=== PATIENT | male | born 1945 | race African-American/Black ===

== ENCOUNTER 2017-06-25 18:45 | Inpatient (IN) ==
[2017-06-25] MEDS ORDERED: cefTRIAXone 1,000 MG in SODIUM CHLORIDE 0.9% 100 ML IV STA (19:24)
[2017-06-25] MEDS ORDERED: SODIUM CHLORIDE 0.9% 500 ML IV STA (19:24)
[2017-06-25] MEDS ORDERED: methylPREDNISolone SOD SUC 125 MG/2 ML VIAL IV STA (19:24)
[2017-06-25] MEDS ORDERED: ONDANSETRON 4 MG/2 ML VIAL IV STA (19:24)
[2017-06-25] MEDS ORDERED: ALBUTEROL 2.5 MG/3 ML NEB RESP TX SCH (19:30)
[2017-06-25 19:56] LABS: ABG HCO3 26.9 MMOL/L (20-26); ABG Oxygen Saturation 86.7 % (95-100); ABG PCO2 33.9 MM HG (35-48); ABG PH 7.493 (7.35-7.45); ABG PO2 52.3 MM HG (80-95); ABG TCO2 23.4 MMOL/L (23-27)
[2017-06-25 20:26] LABS: Basophils % 0.2 % (0.0-0.8); Eosinophils % 0.2 % (0.00-10.9); Hematocrit 33.8 VOL% (42.0-52.0); Hemoglobin 10.2 GM/DL (14.0-18.0); Immature Granulocytes % 0.7 %; Immature Granulocytes Absolute 0.11 #; Lymphocytes # 2.5 10*3/uL (1.4-4.0); Lymphocytes % 15.7 % (21.2-54.2); Mean Corpuscular HGB Conc 30.2 GM/DL (32-36); Mean Corpuscular Hemoglobin 25 PG (27-34); Mean Corpuscular Volume 84.1 FL (87-102); Mean Platelet Volume 11.6 FL (9.6-12.0); Monocytes # 1.9 10*3/uL (0.11-0.8); Monocytes % 11.9 % (1.7-12.7); Neutrophils # 11.6 10*3/uL (1.4-7.4); Neutrophils % 71.3 % (38.7-73.9); Platelet Count 521 T/CUMM (130-400); Red Blood Count 4.02 MC/CUMM (3.8-5.5); Red Cell Distribution Width 17.5 % (9.3-17.3); White Blood Count 16.2 T/CUMM (4-12)
[2017-06-25 20:38] LABS: PT Patient Result 10.7 SECS
[2017-06-25] MEDS ORDERED: ONDANSETRON 4 MG/2 ML VIAL ONE (20:48)
[2017-06-25] MEDS ORDERED: cefTRIAXone 1,000 MG VIAL ONE (20:48)
[2017-06-25] MEDS ORDERED: methylPREDNISolone SOD SUC 125 MG/2 ML VIAL ONE (20:48)
[2017-06-25 20:52] LABS: Lactic Acid 1.5 MMOL/L (0.4-2.0)
[2017-06-25 20:55] LABS: Alanine Aminotransferase 158 U/L (16-61); Albumin 2.6 G/DL (3.4-5.0); Alkaline Phosphatase 129 U/L (45-117); Aspartate Amino Transferase 96 U/L (0-37); Blood Urea Nitrogen 47 MG/DL (7-18); Calcium 9.6 MG/DL (8.5-10.1); Glucose 131 MG/DL (74-106); Potassium 4.9 MMOL/L (3.5-5.1); Sodium 143 MMOL/L (136-145); Total Protein 8.9 G/DL (6.4-8.3); Troponin I Only 0.016 NG/ML (0.00-0.045)
[2017-06-25 21:08] LABS: Apearance,Urine CLOUDY (Clear); Bacteria,Urine Many /HPF (Few); Bilirubin,Urine Negative (Negative); Blood, Urine Negative (Negative); Calcium Oxalate Crystals,Urine Many /HPF (Few); Glucose,Urine (UA) Negative (Negative); Ketones,Urine Negative (Negative); Mucus,Urine Occasional /LPF (Occasional); Nitrite,Urine Negative (Negative); Protein,Urine Negative; RBC,Urine 210 /HPF (0-4); Urine Color Amber (Yellow); Urine Specific Gravity 1.019 (1.001-1.035); WBC,Urine 24 /HPF (0-6)
[2017-06-25] MEDS ORDERED: LIDOCAINE 2%/EPI 20 ML VIAL ONE (21:08)
[2017-06-25] MEDS ORDERED: LEVOFLOXACIN INJ 750 MG in PREMIX 1 EACH IV STA (21:37)
[2017-06-25] MEDS ORDERED: LEVOFLOXACIN INJ 150 ML IV ONE (22:20)
[2017-06-26] MEDS ORDERED: ONDANSETRON 4 MG/2 ML VIAL IV PRN (00:03)
[2017-06-26] MEDS ORDERED: ALBUTEROL/IPRATROPIUM 3 ML NEB RESP TX PRN (00:03)
[2017-06-26] MEDS ORDERED: PANTOPRAZOLE 40 MG VIAL IV SCH (00:03)
[2017-06-26] MEDS ORDERED: PANTOPRAZOLE 40 MG VIAL IV ONE (00:51)
[2017-06-26] MEDS ORDERED: ENOXAPARIN 40 MG/0.4 ML SYRINGE ONE (00:52)
[2017-06-26] MEDS: LACTATED RINGERS 1,000 ML IV SCH ×2 (01:04→14:59)
[2017-06-26] MEDS: ENOXAPARIN 40 MG/0.4 ML SYRINGE SUBCUT SCH ×2 (01:04→21:49)
[2017-06-26] MEDS: PANTOPRAZOLE 40 MG VIAL IV SCH ×2 (01:05→21:48)
[2017-06-26 03:48] LABS: ABG Base Excess -1.7 MMOL/L (-2.5-2.5); ABG HCO3 22.8 MMOL/L (20-26); ABG Oxygen Saturation 86.5 % (95-100); ABG PH 7.397 (7.35-7.45); ABG PO2 56.3 MM HG (80-95); ABG TCO2 20.8 MMOL/L (23-27); Allen Test Positive
[2017-06-26] MEDS ORDERED: LACTATED RINGERS 500 ML IV ONE (05:22)
[2017-06-26] MEDS: cefTRIAXone 1,000 MG in SYRINGE 1 EACH IV SCH ×2 (09:15→21:48)
[2017-06-26] MEDS: DOCUSATE SODIUM 100 MG CAPSULE PEG SCH ×2 (09:15→21:48)
[2017-06-26] MEDS: SODIUM HYPOCHLORITE 0.25% IRRIG 473 ML BOTTLE TOP SCH ×2 (16:00→23:47)
[2017-06-26] MEDS: MORPHINE 2 MG/1 ML SYRINGE IV PRN (23:46)
[2017-06-27] MEDS: LACTATED RINGERS 1,000 ML IV SCH (03:29)
[2017-06-27] MEDS ORDERED: FUROSEMIDE 40 MG/4 ML VIAL IV ONE (05:24)
[2017-06-27] MEDS ORDERED: ALBUTEROL/IPRATROPIUM 3 ML NEB RESP TX PRN (05:26)
[2017-06-27] MEDS ORDERED: FUROSEMIDE 40 MG/4 ML VIAL ONE (05:28)
[2017-06-27] MEDS: AZITHROMYCIN INJ 500 MG in SODIUM CHLORIDE 0.9% 250 ML IV SCH (06:06)
[2017-06-27 06:39] LABS: ABG Base Excess 6.7 MMOL/L (-2.5-2.5); ABG HCO3 30.3 MMOL/L (20-26); ABG Oxygen Saturation 85.4 % (95-100); ABG PCO2 42.4 MM HG (35-48); ABG PH 7.472 (7.35-7.45); ABG PO2 49.3 MM HG (80-95); ABG TCO2 27.6 MMOL/L (23-27); Allen Test Positive; Pt O2 Delivery Device Venturi Mask
[2017-06-27] MEDS ORDERED: VECURONIUM 10 MG VIAL IV ONE ×2 (06:56→07:12)
[2017-06-27] MEDS ORDERED: ETOMIDATE 20 MG/10 ML VIAL IV ONE ×2 (06:56→07:10)
[2017-06-27 07:03] LABS: Prealbumin 11.1 MG/DL (20-40)
[2017-06-27 07:40] LABS: ABG Base Excess 6.8 MMOL/L (-2.5-2.5); ABG HCO3 30.6 MMOL/L (20-26); ABG Oxygen Saturation 99.6 % (95-100); ABG PCO2 47.6 MM HG (35-48); ABG PH 7.434 (7.35-7.45); ABG TCO2 29.4 MMOL/L (23-27); Allen Test Positive; Pt O2 Delivery Device Ventilator
[2017-06-27] MEDS: PROPOFOL 1,000 MG/100 ML BOTTLE IV SCH (07:45)
[2017-06-27 08:53] LABS: Basophils % 0.1 % (0.0-0.8); Hematocrit 32.7 VOL% (42.0-52.0); Hemoglobin 9.8 GM/DL (14.0-18.0); Immature Granulocytes % 0.7 %; Immature Granulocytes Absolute 0.13 #; Lymphocytes # 1.7 10*3/uL (1.4-4.0); Mean Corpuscular Hemoglobin 25 PG (27-34); Mean Corpuscular Volume 83.6 FL (87-102); Mean Platelet Volume 11.9 FL (9.6-12.0); Monocytes # 1.5 10*3/uL (0.11-0.8); Monocytes % 8.2 % (1.7-12.7); Neutrophils # 15.4 10*3/uL (1.4-7.4); Platelet Count 481 T/CUMM (130-400); Red Blood Count 3.91 MC/CUMM (3.8-5.5); Red Cell Distribution Width 17.7 % (9.3-17.3); White Blood Count 18.7 T/CUMM (4-12)
[2017-06-27] MEDS: MORPHINE 2 MG/1 ML SYRINGE IV PRN (09:04)
[2017-06-27 09:17] LABS: Albumin 2.4 G/DL (3.4-5.0); Bilirubin,Total 0.4 MG/DL (0.2-1.0); Calcium 9.2 MG/DL (8.5-10.1); Total Protein 7.7 G/DL (6.4-8.3)
[2017-06-27 09:18] LABS: Potassium 3.9 MMOL/L (3.5-5.1)
[2017-06-27] MEDS: ASCORBIC ACID 500 MG TABLET PO SCH ×2 (10:22→20:48)
[2017-06-27] MEDS: ZINC SULFATE 220 MG CAPSULE PO SCH (10:22)
[2017-06-27] MEDS: METOPROLOL TARTRATE 25 MG TABLET PO SCH ×2 (10:22→20:48)
[2017-06-27] MEDS: DOCUSATE SODIUM 100 MG CAPSULE PEG SCH ×2 (10:22→20:49)
[2017-06-27] MEDS: cefTRIAXone 1,000 MG in SYRINGE 1 EACH IV SCH ×2 (10:22→20:49)
[2017-06-27] MEDS: fentaNYL INJ 1,250 MCG in SODIUM CHLORIDE 0.9% 225 ML IV SCH ×2 (10:23→11:21)
[2017-06-27] MEDS: SODIUM HYPOCHLORITE 0.25% IRRIG 473 ML BOTTLE TOP SCH (10:24)
[2017-06-27] MEDS: MULTIVITAMIN LIQUID (CENTRUM) 60 ML BOTTLE PO SCH (10:25)
[2017-06-27] MEDS: SODIUM CHLORIDE 0.45% 1,000 ML IV SCH ×2 (10:26→18:23)
[2017-06-27] MEDS ORDERED: NOREPINEPHRINE 4 MG/4 ML VIAL IV ONE (13:35)
[2017-06-27] MEDS: NOREPINEPHRINE 8 MG in SODIUM CHLORIDE 0.9% 242 ML IV SCH (13:41)
[2017-06-27 13:53] LABS: Troponin I Only 0.048 NG/ML (0.00-0.045)
[2017-06-27 13:57] LABS: T4 (Thyroxine) 12.7 UG/DL (4.7-13.3); Thyroid Stimulating Hormone 3.86 uIU/ml (0.358-3.74)
[2017-06-27] MEDS: FLUCONAZOLE INJ 200 MG in PREMIX 1 EACH IV SCH (18:20)
[2017-06-27] MEDS: PANTOPRAZOLE 40 MG VIAL IV SCH (20:46)
[2017-06-27] MEDS: ENOXAPARIN 40 MG/0.4 ML SYRINGE SUBCUT SCH (20:49)
[2017-06-28 04:50] LABS: Pt O2 Delivery Device Ventilator
[2017-06-28 04:53] LABS: ABG Base Excess 1.7 MMOL/L (-2.5-2.5); ABG HCO3 25.8 MMOL/L (20-26); ABG Oxygen Saturation 98.3 % (95-100); ABG PCO2 38.3 MM HG (35-48); ABG PH 7.446 (7.35-7.45); ABG PO2 107.5 MM HG (80-95)
[2017-06-28 05:50] LABS: Basophils % 0.1 % (0.0-0.8); Eosinophils % 0.1 % (0.00-10.9); Hematocrit 27.4 VOL% (42.0-52.0); Hemoglobin 7.9 GM/DL (14.0-18.0); Immature Granulocytes % 0.8 %; Immature Granulocytes Absolute 0.15 #; Lymphocytes # 1.2 10*3/uL (1.4-4.0); Lymphocytes % 6.6 % (21.2-54.2); Mean Corpuscular HGB Conc 28.8 GM/DL (32-36); Mean Corpuscular Hemoglobin 25 PG (27-34); Mean Corpuscular Volume 85.6 FL (87-102); Mean Platelet Volume 13.4 FL (9.6-12.0); Monocytes % 5.3 % (1.7-12.7); Neutrophils # 16.1 10*3/uL (1.4-7.4); Neutrophils % 87.1 % (38.7-73.9); Platelet Count 212 T/CUMM (130-400); Red Cell Distribution Width 17.8 % (9.3-17.3); White Blood Count 18.5 T/CUMM (4-12)
[2017-06-28] MEDS: AZITHROMYCIN INJ 500 MG in SODIUM CHLORIDE 0.9% 250 ML IV SCH (06:00)
[2017-06-28] MEDS: SODIUM CHLORIDE 0.45% 1,000 ML IV SCH ×3 (06:08→20:00)
[2017-06-28 06:21] LABS: Band Neutrophils 3 % (0-10); Lymphocytes 10 % (20-55); Segmented Neutrophils 84 % (50-85); Total Cells Counted 100
[2017-06-28 06:22] LABS: Giant Platelets Few; Hypochromasia 1+; Platelet Estimate Adequate
[2017-06-28 06:23] LABS: Albumin 2.1 G/DL (3.4-5.0); Bilirubin,Total 0.4 MG/DL (0.2-1.0); Calcium 8.5 MG/DL (8.5-10.1); Osmolality,Calculated 301.8 MOS/KG (273-304); Potassium 4.1 MMOL/L (3.5-5.1); Total Protein 6.6 G/DL (6.4-8.3)
[2017-06-28] MEDS: MULTIVITAMIN LIQUID (CENTRUM) 60 ML BOTTLE PO SCH (09:14)
[2017-06-28] MEDS: PROPOFOL 1,000 MG/100 ML BOTTLE IV SCH ×2 (09:14→10:50)
[2017-06-28] MEDS: ZINC SULFATE 220 MG CAPSULE PO SCH (09:15)
[2017-06-28] MEDS: cefTRIAXone 1,000 MG in SYRINGE 1 EACH IV SCH (09:15)
[2017-06-28] MEDS: METOPROLOL TARTRATE 25 MG TABLET PO SCH ×2 (09:15→22:48)
[2017-06-28] MEDS: ASCORBIC ACID 500 MG TABLET PO SCH ×2 (09:15→22:48)
[2017-06-28] MEDS: SODIUM HYPOCHLORITE 0.25% IRRIG 473 ML BOTTLE TOP SCH (09:15)
[2017-06-28] MEDS: DOCUSATE SODIUM 100 MG CAPSULE PEG SCH ×2 (09:15→22:48)
[2017-06-28] MEDS: NOREPINEPHRINE 8 MG in SODIUM CHLORIDE 0.9% 242 ML IV SCH ×2 (09:45→15:25)
[2017-06-28] MEDS ORDERED: SODIUM CHLORIDE 0.9% 1,000 ML IV PRN (12:29)
[2017-06-28] MEDS: FLUCONAZOLE INJ 200 MG in PREMIX 1 EACH IV SCH (13:33)
[2017-06-28] MEDS: fentaNYL INJ 1,250 MCG in SODIUM CHLORIDE 0.9% 225 ML IV SCH (13:35)
[2017-06-28] MEDS: ERTAPENEM 1,000 MG in SODIUM CHLORIDE 0.9% 100 ML IV SCH (17:15)
[2017-06-28] MEDS ORDERED: SUCCINYLCHOLINE 200 MG/10 ML VIAL ONE (21:11)
[2017-06-28] MEDS: ENOXAPARIN 40 MG/0.4 ML SYRINGE SUBCUT SCH (22:48)
[2017-06-28] MEDS: PANTOPRAZOLE 40 MG VIAL IV SCH (22:49)
[2017-06-29] MEDS: PROPOFOL 1,000 MG/100 ML BOTTLE IV SCH ×3 (01:00→15:54)
[2017-06-29 03:19] LABS: ABG Base Excess -0.7 MMOL/L (-2.5-2.5); ABG HCO3 23.8 MMOL/L (20-26); ABG Oxygen Saturation 97.4 % (95-100); ABG PCO2 49.4 MM HG (35-48); ABG PH 7.325 (7.35-7.45); ABG PO2 94.2 MM HG (80-95); ABG TCO2 23.6 MMOL/L (23-27); Allen Test Positive; Pt O2 Delivery Device Ventilator
[2017-06-29 08:22] LABS: Basophils % 0.1 % (0.0-0.8); Eosinophils % 0.1 % (0.00-10.9); Hematocrit 33.7 VOL% (42.0-52.0); Immature Granulocytes % 0.7 %; Immature Granulocytes Absolute 0.13 #; Lymphocytes % 5.6 % (21.2-54.2); Mean Corpuscular HGB Conc 29.7 GM/DL (32-36); Mean Corpuscular Hemoglobin 25 PG (27-34); Mean Corpuscular Volume 85.8 FL (87-102); Mean Platelet Volume 12.1 FL (9.6-12.0); Monocytes % 5.7 % (1.7-12.7); Neutrophils # 16.1 10*3/uL (1.4-7.4); Neutrophils % 87.8 % (38.7-73.9); Platelet Count 312 T/CUMM (130-400); Red Blood Count 3.93 MC/CUMM (3.8-5.5); White Blood Count 18.3 T/CUMM (4-12)
[2017-06-29 08:29] LABS: Alanine Aminotransferase 41 U/L (16-61); Albumin 1.8 G/DL (3.4-5.0); Alkaline Phosphatase 72 U/L (45-117); Aspartate Amino Transferase 23 U/L (0-37); Bilirubin,Total < 0.39 MG/DL (0.2-1.0); Blood Urea Nitrogen 63 MG/DL (7-18); Calcium 8.1 MG/DL (8.5-10.1); Glucose 136 MG/DL (74-106); Osmolality,Calculated 307.7 MOS/KG (273-304); Potassium 4.1 MMOL/L (3.5-5.1); Sodium 145 MMOL/L (136-145); Total Protein 6.1 G/DL (6.4-8.3)
[2017-06-29 09:35] LABS: Creatinine,Urine Random 69 MG/DL; Total Protein,Urine Random 131 MG/DL; Urea Nitrogen, Urine Random 422 MG/DL
[2017-06-29] MEDS: fentaNYL INJ 1,250 MCG in SODIUM CHLORIDE 0.9% 225 ML IV SCH (09:54)
[2017-06-29] MEDS: ASCORBIC ACID 500 MG TABLET PO SCH ×2 (09:55→21:32)
[2017-06-29] MEDS: METOPROLOL TARTRATE 25 MG TABLET PO SCH ×2 (09:55→21:31)
[2017-06-29] MEDS: ZINC SULFATE 220 MG CAPSULE PO SCH (09:55)
[2017-06-29] MEDS: DOCUSATE SODIUM 100 MG CAPSULE PEG SCH ×2 (09:55→21:32)
[2017-06-29] MEDS: MULTIVITAMIN LIQUID (CENTRUM) 60 ML BOTTLE PO SCH (09:55)
[2017-06-29] MEDS: SODIUM HYPOCHLORITE 0.25% IRRIG 473 ML BOTTLE TOP SCH (09:55)
[2017-06-29 10:14] LABS: ABG Base Excess -2.7 MMOL/L (-2.5-2.5); ABG HCO3 22.3 MMOL/L (20-26); ABG Oxygen Saturation 97.3 % (95-100); ABG PCO2 39.3 MM HG (35-48); ABG PH 7.372 (7.35-7.45); ABG PO2 97.6 MM HG (80-95); ABG TCO2 23.5 MMOL/L (23-27); Pt O2 Delivery Device Ventilator
[2017-06-29] MEDS: FLUCONAZOLE INJ 200 MG in PREMIX 1 EACH IV SCH (14:42)
[2017-06-29] MEDS: NOREPINEPHRINE 8 MG in SODIUM CHLORIDE 0.9% 242 ML IV SCH ×2 (15:02→19:30)
[2017-06-29] MEDS: ERTAPENEM 1,000 MG in SODIUM CHLORIDE 0.9% 100 ML IV SCH (16:28)
[2017-06-29] MEDS: SODIUM CHLORIDE 0.45% 1,000 ML IV SCH (18:36)
[2017-06-29] MEDS: ENOXAPARIN 40 MG/0.4 ML SYRINGE SUBCUT SCH (21:32)
[2017-06-29] MEDS: PANTOPRAZOLE 40 MG VIAL IV SCH (21:32)
[2017-06-30 04:06] LABS: ABG Base Excess -2.3 MMOL/L (-2.5-2.5); ABG HCO3 23.7 MMOL/L (20-26); ABG Oxygen Saturation 98.7 % (95-100); ABG PCO2 46.4 MM HG (35-48); ABG PH 7.326 (7.35-7.45); ABG PO2 150.2 MM HG (80-95); ABG TCO2 25.1 MMOL/L (23-27)
[2017-06-30] MEDS: SODIUM CHLORIDE 0.45% 1,000 ML IV SCH ×4 (07:50→17:00)
[2017-06-30] MEDS ORDERED: LIDOCAINE 2% 20 ML VIAL RESP TX ONE (08:16)
[2017-06-30] MEDS ORDERED: LIDOCAINE 1% 20 ML VIAL MISC INJ ONE (08:16)
[2017-06-30] MEDS: PROPOFOL 1,000 MG/100 ML BOTTLE IV SCH ×2 (09:40→21:00)
[2017-06-30] MEDS: fentaNYL INJ 1,250 MCG in SODIUM CHLORIDE 0.9% 225 ML IV SCH (09:43)
[2017-06-30] MEDS: MULTIVITAMIN LIQUID (CENTRUM) 60 ML BOTTLE PO SCH (09:44)
[2017-06-30] MEDS: SODIUM HYPOCHLORITE 0.25% IRRIG 473 ML BOTTLE TOP SCH (09:44)
[2017-06-30] MEDS: ZINC SULFATE 220 MG CAPSULE PO SCH (09:45)
[2017-06-30] MEDS: ASCORBIC ACID 500 MG TABLET PO SCH ×2 (09:45→21:28)
[2017-06-30] MEDS: METOPROLOL TARTRATE 25 MG TABLET PO SCH ×2 (09:45→21:28)
[2017-06-30] MEDS: DOCUSATE SODIUM 100 MG CAPSULE PEG SCH ×2 (09:45→21:28)
[2017-06-30] MEDS: FLUCONAZOLE INJ 200 MG in PREMIX 1 EACH IV SCH (14:02)
[2017-06-30] MEDS: ERTAPENEM 1,000 MG in SODIUM CHLORIDE 0.9% 100 ML IV SCH (16:25)
[2017-06-30] MEDS: NOREPINEPHRINE 8 MG in SODIUM CHLORIDE 0.9% 242 ML IV SCH (16:26)
[2017-06-30] MEDS: ENOXAPARIN 30 MG/0.3 ML SYRINGE SUBCUT SCH (21:27)
[2017-06-30] MEDS: PANTOPRAZOLE 40 MG VIAL IV SCH (21:28)
[2017-07-01 02:52] LABS: ABG Base Excess -2.4 MMOL/L (-2.5-2.5); ABG HCO3 22.4 MMOL/L (20-26); ABG Oxygen Saturation 94.7 % (95-100); ABG PCO2 38.4 MM HG (35-48); ABG PH 7.375 (7.35-7.45); ABG TCO2 20.7 MMOL/L (23-27); Allen Test Positive; Pt O2 Delivery Device Ventilator
[2017-07-01] MEDS: SODIUM CHLORIDE 0.45% 1,000 ML IV SCH (06:20)
[2017-07-01] MEDS: fentaNYL INJ 1,250 MCG in SODIUM CHLORIDE 0.9% 225 ML IV SCH ×2 (06:24→18:22)
[2017-07-01 08:10] LABS: Basophils % 0.1 % (0.0-0.8); Eosinophils # 0.3 10*3/uL (0.0-0.87); Eosinophils % 1.6 % (0.00-10.9); Hemoglobin 10.9 GM/DL (14.0-18.0); Immature Granulocytes % 0.9 %; Immature Granulocytes Absolute 0.16 #; Lymphocytes # 2.8 10*3/uL (1.4-4.0); Lymphocytes % 15.8 % (21.2-54.2); Mean Corpuscular HGB Conc 31.1 GM/DL (32-36); Mean Corpuscular Hemoglobin 26 PG (27-34); Mean Corpuscular Volume 83.5 FL (87-102); Mean Platelet Volume 11.8 FL (9.6-12.0); Monocytes # 1.7 10*3/uL (0.11-0.8); Monocytes % 9.8 % (1.7-12.7); Neutrophils # 12.7 10*3/uL (1.4-7.4); Neutrophils % 71.8 % (38.7-73.9); Platelet Count 303 T/CUMM (130-400); Red Blood Count 4.19 MC/CUMM (3.8-5.5); Red Cell Distribution Width 18.7 % (9.3-17.3); White Blood Count 17.8 T/CUMM (4-12)
[2017-07-01 08:18] LABS: Total Protein (Chem) 6.1 G/DL (6.4-8.3)
[2017-07-01] MEDS: MULTIVITAMIN LIQUID (CENTRUM) 60 ML BOTTLE PO SCH (08:25)
[2017-07-01] MEDS: ZINC SULFATE 220 MG CAPSULE PO SCH (08:25)
[2017-07-01] MEDS: DOCUSATE SODIUM 100 MG CAPSULE PEG SCH ×2 (08:25→20:34)
[2017-07-01] MEDS: ACETAMINOPHEN 325 MG TABLET PO PRN ×2 (08:25→20:34)
[2017-07-01] MEDS: METOPROLOL TARTRATE 25 MG TABLET PO SCH ×2 (08:26→20:34)
[2017-07-01] MEDS: ASCORBIC ACID 500 MG TABLET PO SCH ×2 (08:26→20:34)
[2017-07-01] MEDS: SODIUM HYPOCHLORITE 0.25% IRRIG 473 ML BOTTLE TOP SCH (08:27)
[2017-07-01 08:29] LABS: Eosinophils 2 % (0-10); Giant Platelets Few; Hypochromasia 1+; Lymphocytes 11 % (20-55); Platelet Estimate Adequate; Segmented Neutrophils 79 % (50-85); Total Cells Counted 100
[2017-07-01 08:44] LABS: Albumin 1.6 G/DL (3.4-5.0); Calcium 7.8 MG/DL (8.5-10.1); Osmolality,Calculated 300.7 MOS/KG (273-304)
[2017-07-01 08:59] LABS: Random Urine Protein (Bench) 131 MG/DL (<11.9)
[2017-07-01] MEDS ORDERED: NOREPINEPHRINE 4 MG/4 ML VIAL IV ONE (09:35)
[2017-07-01] MEDS: NOREPINEPHRINE 8 MG in SODIUM CHLORIDE 0.9% 242 ML IV SCH ×2 (10:26→18:22)
[2017-07-01] MEDS: PROPOFOL 1,000 MG/100 ML BOTTLE IV SCH (10:27)
[2017-07-01 13:20] LABS: Albumin (SPE) 2.1 G/DL (3.2-5.3); Albumin (SPE) Rel % 34.8 %; Alpha 2 (SPE) 0.9 G/DL (0.4-1.0); Alpha 2 (SPE) Rel % 15.3 %; Beta (SPE) 0.8 G/DL (0.5-1.1); Beta (SPE) Rel % 13.4 %; Gamma (SPE) 1.8 G/DL (0.7-1.7); Gamma (SPE) Rel % 29.5 %
[2017-07-01 13:21] LABS: Alpha 1 (SPE) 0.5 G/DL (0.1-0.4)
[2017-07-01 13:58] LABS: Apearance,Urine CLOUDY (Clear); Bacteria,Urine Occasional /HPF (Few); Bilirubin,Urine Negative (Negative); Blood, Urine Negative (Negative); Calcium Oxalate Crystals,Urine Few /HPF (Few); Glucose,Urine (UA) Negative (Negative); Ketones,Urine Negative (Negative); Mucus,Urine Occasional /LPF (Occasional); Nitrite,Urine Negative (Negative); Protein,Urine Negative; RBC,Urine 9 /HPF (0-4); Squamous Epithelial Cell,Urine Occasional /HPF (0-10); Urine Color Yellow (Yellow); Urine Specific Gravity 1.011 (1.001-1.035); Urine Urobilinogen < 2.0 EU/DL (0.2-1.0); WBC,Urine 22 /HPF (0-6)
[2017-07-01 15:42] LABS: Troponin I Only 0.193 NG/ML (0.00-0.045)
[2017-07-01] MEDS: FLUCONAZOLE INJ 200 MG in PREMIX 1 EACH IV SCH (15:48)
[2017-07-01] MEDS: VANCOMYCIN INJ 500 MG in SODIUM CHLORIDE 0.9% 100 ML IV SCH (16:31)
[2017-07-01] MEDS: ERTAPENEM 1,000 MG in SODIUM CHLORIDE 0.9% 100 ML IV SCH (17:32)
[2017-07-01] MEDS: SODIUM CHLORIDE 0.9% 1,000 ML IV SCH ×2 (18:23→19:49)
[2017-07-01] MEDS: ENOXAPARIN 30 MG/0.3 ML SYRINGE SUBCUT SCH (20:33)
[2017-07-01] MEDS: PANTOPRAZOLE 40 MG VIAL IV SCH (20:33)
[2017-07-02] MEDS: PROPOFOL 1,000 MG/100 ML BOTTLE IV SCH ×3 (00:05→21:00)
[2017-07-02 04:35] LABS: Basophils % 0.1 % (0.0-0.8); Eosinophils # 0.3 10*3/uL (0.0-0.87); Eosinophils % 1.9 % (0.00-10.9); Hemoglobin 8.9 GM/DL (14.0-18.0); Immature Granulocytes % 0.9 %; Immature Granulocytes Absolute 0.12 #; Lymphocytes # 1.2 10*3/uL (1.4-4.0); Lymphocytes % 8.8 % (21.2-54.2); Mean Corpuscular HGB Conc 30.7 GM/DL (32-36); Mean Corpuscular Hemoglobin 26 PG (27-34); Mean Corpuscular Volume 84.5 FL (87-102); Mean Platelet Volume 11.6 FL (9.6-12.0); Monocytes # 1.1 10*3/uL (0.11-0.8); Monocytes % 7.6 % (1.7-12.7); Neutrophils # 11.3 10*3/uL (1.4-7.4); Neutrophils % 80.7 % (38.7-73.9); Platelet Count 288 T/CUMM (130-400); Red Blood Count 3.43 MC/CUMM (3.8-5.5); Red Cell Distribution Width 18.6 % (9.3-17.3)
[2017-07-02 05:01] LABS: Eosinophils 1 % (0-10); Hypochromasia 1+; Lymphocytes 5 % (20-55); Microcytosis 1+; Ovalocytes Slight; Segmented Neutrophils 92 % (50-85); Total Cells Counted 100
[2017-07-02 05:02] LABS: Platelet Estimate Normal
[2017-07-02 05:13] LABS: Allen Test Positive; Pt O2 Delivery Device Ventilator
[2017-07-02 05:14] LABS: Troponin I Only 0.064 NG/ML (0.00-0.045)
[2017-07-02 05:16] LABS: ABG Base Excess -2.4 MMOL/L (-2.5-2.5); ABG HCO3 22.5 MMOL/L (20-26); ABG Oxygen Saturation 99.4 % (95-100); ABG PCO2 46.3 MM HG (35-48); ABG PH 7.319 (7.35-7.45); ABG TCO2 22.1 MMOL/L (23-27)
[2017-07-02 05:18] LABS: Albumin 1.3 G/DL (3.4-5.0); Calcium 7.5 MG/DL (8.5-10.1); Osmolality,Calculated 301.6 MOS/KG (273-304); Potassium 3.6 MMOL/L (3.5-5.1)
[2017-07-02] MEDS: SODIUM CHLORIDE 0.9% 1,000 ML IV SCH ×2 (05:23→20:17)
[2017-07-02 08:20] LABS: Immuno Free Light Chain Kappa 18.27 MG/DL (0.33-1.94); Immuno Free Light Chain Lambda 9.76 MG/DL (0.57-2.63); Immuno Free Light Chain Ratio 1.87 MG/DL (0.26-1.65)
[2017-07-02] MEDS: ZINC SULFATE 220 MG CAPSULE PO SCH (08:37)
[2017-07-02] MEDS: ASCORBIC ACID 500 MG TABLET PO SCH ×2 (08:37→20:16)
[2017-07-02] MEDS: DOCUSATE SODIUM 100 MG CAPSULE PEG SCH ×2 (08:37→20:16)
[2017-07-02] MEDS: SODIUM HYPOCHLORITE 0.25% IRRIG 473 ML BOTTLE TOP SCH (08:38)
[2017-07-02] MEDS: METOPROLOL TARTRATE 25 MG TABLET PO SCH ×2 (10:26→20:18)
[2017-07-02] MEDS: MULTIVITAMIN LIQUID (CENTRUM) 60 ML BOTTLE PO SCH (12:43)
[2017-07-02] MEDS: fentaNYL INJ 1,250 MCG in SODIUM CHLORIDE 0.9% 225 ML IV SCH ×2 (12:45→20:50)
[2017-07-02] MEDS: FLUCONAZOLE INJ 200 MG in PREMIX 1 EACH IV SCH (14:21)
[2017-07-02] MEDS: VANCOMYCIN INJ 500 MG in SODIUM CHLORIDE 0.9% 100 ML IV SCH (14:26)
[2017-07-02] MEDS: ERTAPENEM 1,000 MG in SODIUM CHLORIDE 0.9% 100 ML IV SCH (15:55)
[2017-07-02] MEDS: NOREPINEPHRINE 8 MG in SODIUM CHLORIDE 0.9% 242 ML IV SCH (15:56)
[2017-07-02] MEDS: cefTRIAXone 1,000 MG in SYRINGE 1 EACH IV SCH (20:16)
[2017-07-02] MEDS: PANTOPRAZOLE 40 MG VIAL IV SCH (20:16)
[2017-07-02] MEDS: ENOXAPARIN 30 MG/0.3 ML SYRINGE SUBCUT SCH (20:18)
[2017-07-03 04:34] LABS: ABG HCO3 23.5 MMOL/L (20-26); ABG Oxygen Saturation 96.4 % (95-100); ABG PCO2 38.3 MM HG (35-48); ABG PH 7.397 (7.35-7.45); ABG PO2 77.8 MM HG (80-95); ABG TCO2 21.8 MMOL/L (23-27); Allen Test Positive; Pt O2 Delivery Device Ventilator
[2017-07-03 04:37] LABS: Basophils % 0.1 % (0.0-0.8); Eosinophils # 0.3 10*3/uL (0.0-0.87); Eosinophils % 2.7 % (0.00-10.9); Hematocrit 29.5 VOL% (42.0-52.0); Hemoglobin 9.2 GM/DL (14.0-18.0); Immature Granulocytes % 0.8 %; Lymphocytes # 1.5 10*3/uL (1.4-4.0); Lymphocytes % 12.2 % (21.2-54.2); Mean Corpuscular HGB Conc 31.2 GM/DL (32-36); Mean Corpuscular Hemoglobin 26 PG (27-34); Mean Corpuscular Volume 82.6 FL (87-102); Mean Platelet Volume 11.4 FL (9.6-12.0); Monocytes # 0.9 10*3/uL (0.11-0.8); Monocytes % 7.8 % (1.7-12.7); Neutrophils # 9.1 10*3/uL (1.4-7.4); Neutrophils % 76.4 % (38.7-73.9); Platelet Count 310 T/CUMM (130-400); Red Blood Count 3.57 MC/CUMM (3.8-5.5); Red Cell Distribution Width 18.7 % (9.3-17.3); White Blood Count 11.9 T/CUMM (4-12)
[2017-07-03 05:05] LABS: Calcium 7.7 MG/DL (8.5-10.1); Potassium 3.7 MMOL/L (3.5-5.1)
[2017-07-03 05:14] LABS: Albumin 1.3 G/DL (3.4-5.0); Calcium 7.5 MG/DL (8.5-10.1); Osmolality,Calculated 307.1 MOS/KG (273-304); Potassium 3.7 MMOL/L (3.5-5.1)
[2017-07-03] MEDS: PROPOFOL 1,000 MG/100 ML BOTTLE IV SCH ×2 (08:30→19:10)
[2017-07-03] MEDS: METOPROLOL TARTRATE 25 MG TABLET PO SCH ×2 (08:31→21:50)
[2017-07-03] MEDS: DOCUSATE SODIUM 100 MG CAPSULE PEG SCH ×2 (08:31→21:50)
[2017-07-03] MEDS: MULTIVITAMIN LIQUID (CENTRUM) 60 ML BOTTLE PO SCH (08:31)
[2017-07-03] MEDS: SODIUM HYPOCHLORITE 0.25% IRRIG 473 ML BOTTLE TOP SCH (08:31)
[2017-07-03] MEDS: ASCORBIC ACID 500 MG TABLET PO SCH ×2 (08:31→21:50)
[2017-07-03] MEDS: ZINC SULFATE 220 MG CAPSULE PO SCH (08:31)
[2017-07-03] MEDS: fentaNYL INJ 1,250 MCG in SODIUM CHLORIDE 0.9% 225 ML IV SCH (08:32)
[2017-07-03] MEDS: SODIUM CHLORIDE 0.9% 1,000 ML IV SCH (08:32)
[2017-07-03 12:20] LABS: Troponin I Only 0.023 NG/ML (0.00-0.045)
[2017-07-03] MEDS: NOREPINEPHRINE 8 MG in SODIUM CHLORIDE 0.9% 242 ML IV SCH (15:07)
[2017-07-03] MEDS: FLUCONAZOLE INJ 200 MG in PREMIX 1 EACH IV SCH (15:07)
[2017-07-03] MEDS: VANCOMYCIN INJ 500 MG in SODIUM CHLORIDE 0.9% 100 ML IV SCH (17:58)
[2017-07-03] MEDS: PANTOPRAZOLE 40 MG VIAL IV SCH (21:45)
[2017-07-03] MEDS: cefTRIAXone 1,000 MG in SYRINGE 1 EACH IV SCH (21:49)
[2017-07-03] MEDS: ENOXAPARIN 30 MG/0.3 ML SYRINGE SUBCUT SCH (22:25)
[2017-07-04 04:39] LABS: ABG Base Excess 0.4 MMOL/L (-2.5-2.5); ABG HCO3 24.8 MMOL/L (20-26); ABG Oxygen Saturation 97.8 % (95-100); ABG PCO2 37.4 MM HG (35-48); ABG PH 7.426 (7.35-7.45); ABG PO2 91.6 MM HG (80-95); ABG TCO2 22.6 MMOL/L (23-27)
[2017-07-04 05:09] LABS: Basophils % 0.2 % (0.0-0.8); Eosinophils # 0.1 10*3/uL (0.0-0.87); Hematocrit 28.6 VOL% (42.0-52.0); Hemoglobin 9.2 GM/DL (14.0-18.0); Immature Granulocytes Absolute 0.13 #; Lymphocytes # 1.2 10*3/uL (1.4-4.0); Lymphocytes % 9.5 % (21.2-54.2); Mean Corpuscular HGB Conc 32.2 GM/DL (32-36); Mean Corpuscular Hemoglobin 26 PG (27-34); Mean Corpuscular Volume 81.7 FL (87-102); Mean Platelet Volume 11.6 FL (9.6-12.0); Monocytes # 0.9 10*3/uL (0.11-0.8); Monocytes % 6.9 % (1.7-12.7); Neutrophils # 10.4 10*3/uL (1.4-7.4); Neutrophils % 81.4 % (38.7-73.9); Platelet Count 347 T/CUMM (130-400); Red Cell Distribution Width 19.1 % (9.3-17.3); White Blood Count 12.8 T/CUMM (4-12)
[2017-07-04 05:27] LABS: INR 0.9
[2017-07-04 05:47] LABS: Prealbumin 8.3 MG/DL (20-40)
[2017-07-04] MEDS: fentaNYL INJ 1,250 MCG in SODIUM CHLORIDE 0.9% 225 ML IV SCH ×2 (05:49→08:55)
[2017-07-04] MEDS: PROPOFOL 1,000 MG/100 ML BOTTLE IV SCH ×3 (05:51→13:58)
[2017-07-04] MEDS: MULTIVITAMIN LIQUID (CENTRUM) 60 ML BOTTLE PO SCH (08:34)
[2017-07-04] MEDS: SODIUM HYPOCHLORITE 0.25% IRRIG 473 ML BOTTLE TOP SCH (08:35)
[2017-07-04] MEDS: METOPROLOL TARTRATE 25 MG TABLET PO SCH ×2 (08:35→21:11)
[2017-07-04] MEDS: ZINC SULFATE 220 MG CAPSULE PO SCH (08:35)
[2017-07-04] MEDS: DOCUSATE SODIUM 100 MG CAPSULE PEG SCH ×2 (08:35→21:10)
[2017-07-04] MEDS: ASCORBIC ACID 500 MG TABLET PO SCH ×2 (08:35→21:11)
[2017-07-04] MEDS: VANCOMYCIN INJ 500 MG in SODIUM CHLORIDE 0.9% 100 ML IV SCH (13:05)
[2017-07-04] MEDS: FLUCONAZOLE INJ 200 MG in PREMIX 1 EACH IV SCH (13:57)
[2017-07-04] MEDS: NOREPINEPHRINE 8 MG in SODIUM CHLORIDE 0.9% 242 ML IV SCH (15:35)
[2017-07-04] MEDS: ENOXAPARIN 30 MG/0.3 ML SYRINGE SUBCUT SCH (21:11)
[2017-07-04] MEDS: cefTRIAXone 1,000 MG in SYRINGE 1 EACH IV SCH (21:11)
[2017-07-04] MEDS: PANTOPRAZOLE 40 MG VIAL IV SCH (21:12)
[2017-07-05] MEDS: PROPOFOL 1,000 MG/100 ML BOTTLE IV SCH ×3 (00:15→23:44)
[2017-07-05 03:49] LABS: ABG Base Excess 0.4 MMOL/L (-2.5-2.5); ABG HCO3 24.8 MMOL/L (20-26); ABG Oxygen Saturation 99.1 % (95-100); ABG PCO2 41.8 MM HG (35-48); ABG PH 7.391 (7.35-7.45); ABG TCO2 23.6 MMOL/L (23-27)
[2017-07-05 06:01] LABS: Basophils % 0.2 % (0.0-0.8); Eosinophils # 0.2 10*3/uL (0.0-0.87); Hematocrit 26.8 VOL% (42.0-52.0); Hemoglobin 8.1 GM/DL (14.0-18.0); Immature Granulocytes % 1.3 %; Immature Granulocytes Absolute 0.13 #; Lymphocytes # 1.3 10*3/uL (1.4-4.0); Lymphocytes % 12.8 % (21.2-54.2); Mean Corpuscular HGB Conc 30.2 GM/DL (32-36); Mean Corpuscular Hemoglobin 26 PG (27-34); Mean Corpuscular Volume 85.6 FL (87-102); Mean Platelet Volume 11.6 FL (9.6-12.0); Monocytes # 0.6 10*3/uL (0.11-0.8); Monocytes % 6.3 % (1.7-12.7); Neutrophils # 7.6 10*3/uL (1.4-7.4); Neutrophils % 77.4 % (38.7-73.9); Platelet Count 304 T/CUMM (130-400); Red Blood Count 3.13 MC/CUMM (3.8-5.5); Red Cell Distribution Width 19.3 % (9.3-17.3); White Blood Count 9.8 T/CUMM (4-12)
[2017-07-05] MEDS: VANCOMYCIN INJ 500 MG in SODIUM CHLORIDE 0.9% 100 ML IV SCH (06:17)
[2017-07-05 06:18] LABS: INR 0.9; Partial Thromboplastin Time 32.6 SECS (0-40)
[2017-07-05 06:40] LABS: Osmolality,Calculated 305.9 MOS/KG (273-304); Potassium 4.1 MMOL/L (3.5-5.1)
[2017-07-05] MEDS: SODIUM HYPOCHLORITE 0.25% IRRIG 473 ML BOTTLE TOP SCH (09:40)
[2017-07-05] MEDS: ZINC SULFATE 220 MG CAPSULE PO SCH (09:40)
[2017-07-05] MEDS: METOPROLOL TARTRATE 25 MG TABLET PO SCH ×2 (09:40→20:17)
[2017-07-05] MEDS: MULTIVITAMIN LIQUID (CENTRUM) 60 ML BOTTLE PO SCH (09:40)
[2017-07-05] MEDS: ASCORBIC ACID 500 MG TABLET PO SCH ×2 (09:40→20:17)
[2017-07-05] MEDS: DOCUSATE SODIUM 100 MG CAPSULE PEG SCH ×2 (09:40→20:17)
[2017-07-05] MEDS ORDERED: SODIUM CHLORIDE 0.9% 1,000 ML IV PRN (10:09)
[2017-07-05] MEDS: FLUCONAZOLE INJ 200 MG in PREMIX 1 EACH IV SCH (14:02)
[2017-07-05] MEDS: NOREPINEPHRINE 8 MG in SODIUM CHLORIDE 0.9% 242 ML IV SCH (14:05)
[2017-07-05] MEDS: fentaNYL INJ 1,250 MCG in SODIUM CHLORIDE 0.9% 225 ML IV SCH ×2 (18:26→19:23)
[2017-07-05 19:12] LABS: Hematocrit 27.9 VOL% (42.0-52.0); Hemoglobin 8.4 GM/DL (14.0-18.0)
[2017-07-05] MEDS: cefTRIAXone 1,000 MG in SYRINGE 1 EACH IV SCH (20:16)
[2017-07-05] MEDS: ENOXAPARIN 30 MG/0.3 ML SYRINGE SUBCUT SCH (20:16)
[2017-07-05] MEDS: PANTOPRAZOLE 40 MG VIAL IV SCH (20:16)
[2017-07-06] MEDS: VANCOMYCIN INJ 500 MG in SODIUM CHLORIDE 0.9% 100 ML IV SCH ×2 (00:25→18:03)
[2017-07-06] MEDS: SODIUM HYPOCHLORITE 0.25% IRRIG 473 ML BOTTLE TOP SCH (08:13)
[2017-07-06] MEDS: ASCORBIC ACID 500 MG TABLET PO SCH ×2 (08:13→20:26)
[2017-07-06] MEDS: DOCUSATE SODIUM 100 MG CAPSULE PEG SCH ×2 (08:13→20:26)
[2017-07-06] MEDS: ZINC SULFATE 220 MG CAPSULE PO SCH (08:13)
[2017-07-06] MEDS: MULTIVITAMIN LIQUID (CENTRUM) 60 ML BOTTLE PO SCH (08:13)
[2017-07-06] MEDS: METOPROLOL TARTRATE 25 MG TABLET PO SCH ×2 (08:14→20:27)
[2017-07-06] MEDS ORDERED: SODIUM CHLORIDE 0.9% 1,000 ML IV PRN (08:47)
[2017-07-06] MEDS ORDERED: MAGNESIUM SULF RIDER 4 GM in PREMIX 1 EACH IV PRN (08:52)
[2017-07-06] MEDS: PROPOFOL 1,000 MG/100 ML BOTTLE IV SCH (11:10)
[2017-07-06] MEDS: MAGNESIUM SULF RIDER 2 GM in PREMIX 1 EACH IV PRN (11:47)
[2017-07-06] MEDS: NOREPINEPHRINE 8 MG in SODIUM CHLORIDE 0.9% 242 ML IV SCH ×2 (12:18→20:26)
[2017-07-06] MEDS: FLUCONAZOLE INJ 200 MG in PREMIX 1 EACH IV SCH (14:22)
[2017-07-06 19:20] LABS: Hematocrit 26.2 VOL% (42.0-52.0); Hemoglobin 8.1 GM/DL (14.0-18.0)
[2017-07-06] MEDS: PANTOPRAZOLE 40 MG VIAL IV SCH (20:26)
[2017-07-06] MEDS: cefTRIAXone 1,000 MG in SYRINGE 1 EACH IV SCH (20:26)
[2017-07-06] MEDS: ENOXAPARIN 30 MG/0.3 ML SYRINGE SUBCUT SCH (20:26)
[2017-07-07] MEDS: PROPOFOL 1,000 MG/100 ML BOTTLE IV SCH ×2 (00:40→12:33)
[2017-07-07 06:34] LABS: Calcium 8.1 MG/DL (8.5-10.1); Osmolality,Calculated 291.7 MOS/KG (273-304)
[2017-07-07 07:05] LABS: Basophils % 0.2 % (0.0-0.8); Eosinophils # 0.2 10*3/uL (0.0-0.87); Eosinophils % 1.3 % (0.00-10.9); Hemoglobin 8.6 GM/DL (14.0-18.0); Immature Granulocytes Absolute 0.12 #; Lymphocytes # 1.6 10*3/uL (1.4-4.0); Lymphocytes % 12.8 % (21.2-54.2); Mean Corpuscular HGB Conc 30.7 GM/DL (32-36); Mean Corpuscular Hemoglobin 26 PG (27-34); Mean Corpuscular Volume 84.6 FL (87-102); Mean Platelet Volume 11.4 FL (9.6-12.0); Monocytes # 0.8 10*3/uL (0.11-0.8); Monocytes % 6.2 % (1.7-12.7); Neutrophils # 9.9 10*3/uL (1.4-7.4); Neutrophils % 78.5 % (38.7-73.9); Platelet Count 322 T/CUMM (130-400); Red Blood Count 3.31 MC/CUMM (3.8-5.5); Red Cell Distribution Width 18.9 % (9.3-17.3); White Blood Count 12.6 T/CUMM (4-12)
[2017-07-07 08:08] LABS: Eosinophils 1 % (0-10); Giant Platelets Few; Hypochromasia 1+; Lymphocytes 9 % (20-55); Microcytosis Slight; Ovalocytes Slight; Platelet Estimate Adequate; Segmented Neutrophils 89 % (50-85); Total Cells Counted 100
[2017-07-07 09:00] LABS: ABG Base Excess 2.3 MMOL/L (-2.5-2.5); ABG HCO3 26.5 MMOL/L (20-26); ABG Oxygen Saturation 99.4 % (95-100); ABG PCO2 43.2 MM HG (35-48); ABG PH 7.408 (7.35-7.45); ABG TCO2 25.4 MMOL/L (23-27); Allen Test Positive; Pt O2 Delivery Device Ventilator
[2017-07-07] MEDS: DOCUSATE SODIUM 100 MG CAPSULE PEG SCH ×2 (09:10→20:12)
[2017-07-07] MEDS: ASCORBIC ACID 500 MG TABLET PO SCH ×2 (09:10→20:12)
[2017-07-07] MEDS: SODIUM HYPOCHLORITE 0.25% IRRIG 473 ML BOTTLE TOP SCH (09:10)
[2017-07-07] MEDS: ZINC SULFATE 220 MG CAPSULE PO SCH (09:10)
[2017-07-07 09:27] LABS: % Iron Saturation 6.8 % (18-50)
[2017-07-07] MEDS ORDERED: FUROSEMIDE 40 MG/4 ML VIAL IV ONE (13:03)
[2017-07-07] MEDS: MULTIVITAMIN LIQUID (CENTRUM) 60 ML BOTTLE PO SCH (14:00)
[2017-07-07] MEDS: METOPROLOL TARTRATE 25 MG TABLET PO SCH ×2 (14:01→20:12)
[2017-07-07] MEDS: VANCOMYCIN INJ 500 MG in SODIUM CHLORIDE 0.9% 100 ML IV SCH (14:02)
[2017-07-07] MEDS: FLUCONAZOLE INJ 200 MG in PREMIX 1 EACH IV SCH (14:02)
[2017-07-07] MEDS: NOREPINEPHRINE 8 MG in SODIUM CHLORIDE 0.9% 242 ML IV SCH (14:03)
[2017-07-07] MEDS: fentaNYL INJ 1,250 MCG in SODIUM CHLORIDE 0.9% 225 ML IV SCH ×2 (14:04→19:15)
[2017-07-07] MEDS: cefTRIAXone 1,000 MG in SYRINGE 1 EACH IV SCH (20:11)
[2017-07-07] MEDS: PANTOPRAZOLE 40 MG VIAL IV SCH (20:12)
[2017-07-07] MEDS: ENOXAPARIN 30 MG/0.3 ML SYRINGE SUBCUT SCH (20:12)
[2017-07-08] MEDS: PROPOFOL 1,000 MG/100 ML BOTTLE IV SCH ×3 (02:16→19:30)
[2017-07-08 04:31] LABS: ABG Base Excess 5.8 MMOL/L (-2.5-2.5); ABG HCO3 29.7 MMOL/L (20-26); ABG Oxygen Saturation 99.2 % (95-100); ABG PCO2 44.8 MM HG (35-48); ABG PH 7.443 (7.35-7.45); ABG TCO2 27.1 MMOL/L (23-27); Allen Test Positive; Pt O2 Delivery Device Ventilator
[2017-07-08 05:08] LABS: Basophils % 0.1 % (0.0-0.8); Eosinophils # 0.2 10*3/uL (0.0-0.87); Eosinophils % 2.5 % (0.00-10.9); Hematocrit 25.3 VOL% (42.0-52.0); Immature Granulocytes % 0.9 %; Immature Granulocytes Absolute 0.09 #; Lymphocytes # 1.6 10*3/uL (1.4-4.0); Lymphocytes % 16.7 % (21.2-54.2); Mean Corpuscular HGB Conc 31.6 GM/DL (32-36); Mean Corpuscular Hemoglobin 26 PG (27-34); Mean Corpuscular Volume 82.1 FL (87-102); Mean Platelet Volume 11.9 FL (9.6-12.0); Monocytes # 0.8 10*3/uL (0.11-0.8); Monocytes % 7.9 % (1.7-12.7); Neutrophils # 6.9 10*3/uL (1.4-7.4); Neutrophils % 71.9 % (38.7-73.9); Platelet Count 322 T/CUMM (130-400); Red Blood Count 3.08 MC/CUMM (3.8-5.5); Red Cell Distribution Width 18.6 % (9.3-17.3); White Blood Count 9.6 T/CUMM (4-12)
[2017-07-08 05:18] LABS: INR 0.9; Partial Thromboplastin Time 32.3 SECS (0-40)
[2017-07-08] MEDS: VANCOMYCIN INJ 500 MG in SODIUM CHLORIDE 0.9% 100 ML IV SCH (05:22)
[2017-07-08 05:39] LABS: Calcium 7.6 MG/DL (8.5-10.1); Osmolality,Calculated 289.6 MOS/KG (273-304); Potassium 3.6 MMOL/L (3.5-5.1); Prealbumin 8.1 MG/DL (20-40)
[2017-07-08] MEDS: ASCORBIC ACID 500 MG TABLET PO SCH ×2 (08:50→20:34)
[2017-07-08] MEDS: DOCUSATE SODIUM 100 MG CAPSULE PEG SCH ×2 (08:50→20:34)
[2017-07-08] MEDS: ZINC SULFATE 220 MG CAPSULE PO SCH (08:50)
[2017-07-08] MEDS: SODIUM HYPOCHLORITE 0.25% IRRIG 473 ML BOTTLE TOP SCH (08:51)
[2017-07-08] MEDS: METOPROLOL TARTRATE 25 MG TABLET PO SCH ×2 (08:51→20:34)
[2017-07-08] MEDS: MULTIVITAMIN LIQUID (CENTRUM) 60 ML BOTTLE PO SCH (08:51)
[2017-07-08] MEDS ORDERED: LIDOCAINE 1% 20 ML VIAL MISC INJ ONE (09:00)
[2017-07-08] MEDS ORDERED: LIDOCAINE 2% VISCOUS 100 ML BOTTLE SWISH/SPIT ONE (09:00)
[2017-07-08] MEDS ORDERED: LIDOCAINE 2% 20 ML VIAL RESP TX ONE (09:00)
[2017-07-08] MEDS ORDERED: SODIUM CHLORIDE 0.9% 1,000 ML IV PRN (11:16)
[2017-07-08] MEDS: FERRIC GLUCONATE COMPLEX 125 MG in SODIUM CHLORIDE 0.9% 100 ML IV SCH (11:58)
[2017-07-08] MEDS: MEROPENEM 500 MG in SYRINGE 1 EACH IV SCH ×2 (12:52→20:34)
[2017-07-08] MEDS ORDERED: FUROSEMIDE 40 MG/4 ML VIAL IV ONE (14:03)
[2017-07-08] MEDS: FLUCONAZOLE INJ 200 MG in PREMIX 1 EACH IV SCH (14:58)
[2017-07-08] MEDS: NOREPINEPHRINE 8 MG in SODIUM CHLORIDE 0.9% 242 ML IV SCH (15:42)
[2017-07-08] MEDS ORDERED: SKIN HEALING OINT (AQUAPHOR) 50 GM TUBE TOP PRN (16:28)
[2017-07-08] MEDS: PANTOPRAZOLE 40 MG VIAL IV SCH (20:33)
[2017-07-08] MEDS: ENOXAPARIN 30 MG/0.3 ML SYRINGE SUBCUT SCH (20:34)
[2017-07-08 22:23] LABS: Hematocrit 34.4 VOL% (42.0-52.0)
[2017-07-08 22:24] LABS: Hemoglobin 10.7 GM/DL (14.0-18.0)
[2017-07-09] MEDS: VANCOMYCIN INJ 500 MG in SODIUM CHLORIDE 0.9% 100 ML IV SCH ×2 (00:12→18:38)
[2017-07-09 03:44] LABS: ABG Base Excess 6.6 MMOL/L (-2.5-2.5); ABG HCO3 30.4 MMOL/L (20-26); ABG Oxygen Saturation 96.4 % (95-100); ABG PCO2 42.4 MM HG (35-48); ABG PH 7.472 (7.35-7.45); ABG PO2 80.6 MM HG (80-95); ABG TCO2 27.7 MMOL/L (23-27); Allen Test Positive; Pt O2 Delivery Device Ventilator
[2017-07-09] MEDS: MEROPENEM 500 MG in SYRINGE 1 EACH IV SCH ×3 (05:30→20:58)
[2017-07-09 05:35] LABS: Basophils % 0.3 % (0.0-0.8); Eosinophils # 0.2 10*3/uL (0.0-0.87); Eosinophils % 1.8 % (0.00-10.9); Hematocrit 33.2 VOL% (42.0-52.0); Hemoglobin 10.4 GM/DL (14.0-18.0); Immature Granulocytes % 0.9 %; Immature Granulocytes Absolute 0.09 #; Lymphocytes % 10.7 % (21.2-54.2); Mean Corpuscular HGB Conc 31.3 GM/DL (32-36); Mean Corpuscular Hemoglobin 26 PG (27-34); Mean Corpuscular Volume 82.8 FL (87-102); Mean Platelet Volume 11.8 FL (9.6-12.0); Monocytes # 0.8 10*3/uL (0.11-0.8); Monocytes % 8.1 % (1.7-12.7); Neutrophils # 7.5 10*3/uL (1.4-7.4); Neutrophils % 78.2 % (38.7-73.9); Platelet Count 335 T/CUMM (130-400); Red Blood Count 4.01 MC/CUMM (3.8-5.5); Red Cell Distribution Width 18.1 % (9.3-17.3); White Blood Count 9.6 T/CUMM (4-12)
[2017-07-09] MEDS: fentaNYL INJ 1,250 MCG in SODIUM CHLORIDE 0.9% 225 ML IV SCH (05:40)
[2017-07-09 06:16] LABS: Alanine Aminotransferase 10 U/L (16-61); Albumin 1.4 G/DL (3.4-5.0); Alkaline Phosphatase 91 U/L (45-117); Aspartate Amino Transferase 20 U/L (0-37); Bilirubin,Total < 0.39 MG/DL (0.2-1.0); Blood Urea Nitrogen 13 MG/DL (7-18); Calcium 7.7 MG/DL (8.5-10.1); Glucose 121 MG/DL (74-106); Osmolality,Calculated 288.7 MOS/KG (273-304); Potassium 3.5 MMOL/L (3.5-5.1); Sodium 145 MMOL/L (136-145); Total Protein 5.5 G/DL (6.4-8.3)
[2017-07-09 07:20] LABS: Allen Test Positive
[2017-07-09 07:21] LABS: ABG Base Excess 5.9 MMOL/L (-2.5-2.5); ABG HCO3 29.7 MMOL/L (20-26); ABG Oxygen Saturation 94.1 % (95-100); ABG PCO2 39.6 MM HG (35-48); ABG PH 7.484 (7.35-7.45); ABG PO2 66.9 MM HG (80-95); ABG TCO2 26.5 MMOL/L (23-27)
[2017-07-09] MEDS: PROPOFOL 1,000 MG/100 ML BOTTLE IV SCH (08:51)
[2017-07-09] MEDS: MULTIVITAMIN LIQUID (CENTRUM) 60 ML BOTTLE PO SCH (08:52)
[2017-07-09] MEDS: ZINC SULFATE 220 MG CAPSULE PO SCH (08:53)
[2017-07-09] MEDS: FERRIC GLUCONATE COMPLEX 125 MG in SODIUM CHLORIDE 0.9% 100 ML IV SCH (08:53)
[2017-07-09] MEDS: ASCORBIC ACID 500 MG TABLET PO SCH ×2 (08:53→20:58)
[2017-07-09] MEDS: METOPROLOL TARTRATE 25 MG TABLET PO SCH ×2 (08:53→20:58)
[2017-07-09] MEDS: SODIUM HYPOCHLORITE 0.25% IRRIG 473 ML BOTTLE TOP SCH (08:53)
[2017-07-09] MEDS: DOCUSATE SODIUM 100 MG CAPSULE PEG SCH ×2 (08:53→20:58)
[2017-07-09] MEDS ORDERED: FUROSEMIDE 40 MG/4 ML VIAL IV ONE (12:00)
[2017-07-09] MEDS: NOREPINEPHRINE 8 MG in SODIUM CHLORIDE 0.9% 242 ML IV SCH (14:58)
[2017-07-09] MEDS: FLUCONAZOLE INJ 200 MG in PREMIX 1 EACH IV SCH (14:59)
[2017-07-09] MEDS: PANTOPRAZOLE 40 MG VIAL IV SCH (20:58)
[2017-07-09] MEDS: ENOXAPARIN 30 MG/0.3 ML SYRINGE SUBCUT SCH (20:58)
[2017-07-10] MEDS: MEROPENEM 500 MG in SYRINGE 1 EACH IV SCH (04:35)
[2017-07-10 04:43] LABS: Basophils % 0.3 % (0.0-0.8); Eosinophils # 0.2 10*3/uL (0.0-0.87); Eosinophils % 2.1 % (0.00-10.9); Hematocrit 32.6 VOL% (42.0-52.0); Hemoglobin 10.6 GM/DL (14.0-18.0); Immature Granulocytes % 0.6 %; Immature Granulocytes Absolute 0.07 #; Lymphocytes # 1.1 10*3/uL (1.4-4.0); Lymphocytes % 9.9 % (21.2-54.2); Mean Corpuscular HGB Conc 32.5 GM/DL (32-36); Mean Corpuscular Hemoglobin 26 PG (27-34); Mean Corpuscular Volume 79.9 FL (87-102); Mean Platelet Volume 10.8 FL (9.6-12.0); Monocytes # 1.1 10*3/uL (0.11-0.8); Monocytes % 9.2 % (1.7-12.7); Neutrophils # 8.9 10*3/uL (1.4-7.4); Neutrophils % 77.9 % (38.7-73.9); Platelet Count 334 T/CUMM (130-400); Red Blood Count 4.08 MC/CUMM (3.8-5.5); White Blood Count 11.4 T/CUMM (4-12)
[2017-07-10 04:51] LABS: PT Patient Result 10.6 SECS; Partial Thromboplastin Time 34.9 SECS (0-40)
[2017-07-10 07:22] LABS: ABG HCO3 33.5 MMOL/L (20-26); ABG Oxygen Saturation 87.9 % (95-100); ABG PCO2 39.2 MM HG (35-48); ABG PH 7.539 (7.35-7.45); ABG PO2 50.4 MM HG (80-95); ABG TCO2 29.8 MMOL/L (23-27); Allen Test Positive
[2017-07-10] MEDS: LEVOFLOXACIN INJ 500 MG in PREMIX 1 EACH IV SCH (10:00)
[2017-07-10] MEDS: PROPOFOL 1,000 MG/100 ML BOTTLE IV SCH (10:08)
[2017-07-10] MEDS: ZINC SULFATE 220 MG CAPSULE PO SCH (10:10)
[2017-07-10] MEDS: ASCORBIC ACID 500 MG TABLET PO SCH ×2 (10:11→20:18)
[2017-07-10] MEDS: SODIUM HYPOCHLORITE 0.25% IRRIG 473 ML BOTTLE TOP SCH (10:11)
[2017-07-10] MEDS: MULTIVITAMIN LIQUID (CENTRUM) 60 ML BOTTLE PO SCH (10:11)
[2017-07-10] MEDS: METOPROLOL TARTRATE 25 MG TABLET PO SCH ×2 (10:11→20:17)
[2017-07-10] MEDS: DOCUSATE SODIUM 100 MG CAPSULE PEG SCH ×2 (10:12→20:17)
[2017-07-10] MEDS: FERRIC GLUCONATE COMPLEX 125 MG in SODIUM CHLORIDE 0.9% 100 ML IV SCH (10:45)
[2017-07-10 11:13] LABS: Allen Test Positive
[2017-07-10 11:14] LABS: ABG Base Excess 10.3 MMOL/L (-2.5-2.5); ABG HCO3 33.9 MMOL/L (20-26); ABG PCO2 39.5 MM HG (35-48); ABG PO2 55.7 MM HG (80-95); ABG TCO2 30.3 MMOL/L (23-27)
[2017-07-10] MEDS: VANCOMYCIN INJ 500 MG in SODIUM CHLORIDE 0.9% 100 ML IV SCH (12:00)
[2017-07-10] MEDS: methylPREDNISolone SOD SUC 40 MG/1 ML VIAL IV SCH ×2 (14:15→22:41)
[2017-07-10] MEDS: FLUCONAZOLE INJ 200 MG in PREMIX 1 EACH IV SCH (14:33)
[2017-07-10] MEDS: NOREPINEPHRINE 8 MG in SODIUM CHLORIDE 0.9% 242 ML IV SCH (15:11)
[2017-07-10] MEDS: ENOXAPARIN 30 MG/0.3 ML SYRINGE SUBCUT SCH (20:18)
[2017-07-10] MEDS: PANTOPRAZOLE 40 MG VIAL IV SCH (20:18)
[2017-07-11 04:59] LABS: ABG Base Excess 7.2 MMOL/L (-2.5-2.5); ABG HCO3 30.8 MMOL/L (20-26); ABG Oxygen Saturation 89.2 % (95-100); ABG PCO2 39.1 MM HG (35-48); ABG PH 7.504 (7.35-7.45); ABG PO2 55.1 MM HG (80-95); ABG TCO2 27.2 MMOL/L (23-27); Allen Test Positive
[2017-07-11 05:27] LABS: Basophils % 0.1 % (0.0-0.8); Hematocrit 36.9 VOL% (42.0-52.0); Hemoglobin 11.5 GM/DL (14.0-18.0); Immature Granulocytes % 0.5 %; Immature Granulocytes Absolute 0.05 #; Lymphocytes # 0.6 10*3/uL (1.4-4.0); Lymphocytes % 5.4 % (21.2-54.2); Mean Corpuscular HGB Conc 31.2 GM/DL (32-36); Mean Corpuscular Hemoglobin 26 PG (27-34); Mean Corpuscular Volume 82.7 FL (87-102); Mean Platelet Volume 11.2 FL (9.6-12.0); Monocytes # 0.2 10*3/uL (0.11-0.8); Monocytes % 1.8 % (1.7-12.7); Neutrophils # 9.7 10*3/uL (1.4-7.4); Neutrophils % 92.2 % (38.7-73.9); Platelet Count 378 T/CUMM (130-400); Red Blood Count 4.46 MC/CUMM (3.8-5.5); Red Cell Distribution Width 18.1 % (9.3-17.3); White Blood Count 10.5 T/CUMM (4-12)
[2017-07-11 05:44] LABS: Calcium 7.9 MG/DL (8.5-10.1); Osmolality,Calculated 288.3 MOS/KG (273-304); Potassium 2.6 MMOL/L (3.5-5.1)
[2017-07-11] MEDS: methylPREDNISolone SOD SUC 40 MG/1 ML VIAL IV SCH ×3 (05:44→21:12)
[2017-07-11] MEDS: VANCOMYCIN INJ 500 MG in SODIUM CHLORIDE 0.9% 100 ML IV SCH (05:44)
[2017-07-11 05:47] LABS: Eosinophils 1 % (0-10); Lymphocytes 3 % (20-55); Segmented Neutrophils 96 % (50-85); Total Cells Counted 100
[2017-07-11 05:48] LABS: Hypochromasia 2+; Microcytosis 1+
[2017-07-11] MEDS: MAGNESIUM SULF RIDER 2 GM in PREMIX 1 EACH IV PRN (05:55)
[2017-07-11] MEDS: ASCORBIC ACID 500 MG TABLET PO SCH ×2 (10:27→21:11)
[2017-07-11] MEDS: ZINC SULFATE 220 MG CAPSULE PO SCH (10:27)
[2017-07-11] MEDS: METOPROLOL TARTRATE 25 MG TABLET PO SCH ×2 (10:27→21:11)
[2017-07-11] MEDS: FERRIC GLUCONATE COMPLEX 125 MG in SODIUM CHLORIDE 0.9% 100 ML IV SCH (10:28)
[2017-07-11] MEDS: LEVOFLOXACIN INJ 500 MG in PREMIX 1 EACH IV SCH (10:28)
[2017-07-11] MEDS: SODIUM HYPOCHLORITE 0.25% IRRIG 473 ML BOTTLE TOP SCH (10:30)
[2017-07-11] MEDS: MULTIVITAMIN LIQUID (CENTRUM) 60 ML BOTTLE PO SCH (10:30)
[2017-07-11] MEDS: DOCUSATE SODIUM 100 MG CAPSULE PEG SCH ×2 (10:31→21:12)
[2017-07-11] MEDS ORDERED: GLUCAGON 1 MG VIAL IM PRN (11:13)
[2017-07-11] MEDS ORDERED: POTASSIUM CHLORIDE RIDER 10 MEQ in PREMIX 1 EACH IV PRN (12:03)
[2017-07-11] MEDS: POTASSIUM CHLORIDE RIDER 20 MEQ in PREMIX 1 EACH IV PRN ×3 (12:23→16:20)
[2017-07-11] MEDS ORDERED: FUROSEMIDE 40 MG/4 ML VIAL IV ONE (13:04)
[2017-07-11] MEDS: INSULIN REGULAR 100 UNIT/ML SUBCUT SCH ×2 (14:01→17:42)
[2017-07-11] MEDS: FLUCONAZOLE INJ 200 MG in PREMIX 1 EACH IV SCH (14:02)
[2017-07-11] MEDS: NOREPINEPHRINE 8 MG in SODIUM CHLORIDE 0.9% 242 ML IV SCH (14:05)
[2017-07-11] MEDS: ENOXAPARIN 30 MG/0.3 ML SYRINGE SUBCUT SCH (21:07)
[2017-07-11] MEDS: PANTOPRAZOLE 40 MG VIAL IV SCH (21:08)
[2017-07-12] MEDS: VANCOMYCIN INJ 500 MG in SODIUM CHLORIDE 0.9% 100 ML IV SCH (00:05)
[2017-07-12] MEDS: INSULIN REGULAR 100 UNIT/ML SUBCUT SCH ×5 (01:25→23:45)
[2017-07-12 03:42] LABS: Basophils % 0.1 % (0.0-0.8); Hematocrit 34.7 VOL% (42.0-52.0); Hemoglobin 10.8 GM/DL (14.0-18.0); Immature Granulocytes % 0.6 %; Immature Granulocytes Absolute 0.08 #; Lymphocytes # 0.5 10*3/uL (1.4-4.0); Lymphocytes % 3.8 % (21.2-54.2); Mean Corpuscular HGB Conc 31.1 GM/DL (32-36); Mean Corpuscular Hemoglobin 26 PG (27-34); Mean Corpuscular Volume 82.8 FL (87-102); Mean Platelet Volume 11.6 FL (9.6-12.0); Monocytes # 0.6 10*3/uL (0.11-0.8); Monocytes % 4.5 % (1.7-12.7); Neutrophils # 12.2 10*3/uL (1.4-7.4); Platelet Count 383 T/CUMM (130-400); Red Blood Count 4.19 MC/CUMM (3.8-5.5); Red Cell Distribution Width 18.1 % (9.3-17.3); White Blood Count 13.4 T/CUMM (4-12)
[2017-07-12 04:09] LABS: Band Neutrophils 7 % (0-10); Lymphocytes 4 % (20-55); Segmented Neutrophils 83 % (50-85); Total Cells Counted 100
[2017-07-12 04:10] LABS: Anisocytosis 1+; Hypochromasia 1+; Poikilocytosis 1+
[2017-07-12 05:32] LABS: Calcium 7.9 MG/DL (8.5-10.1)
[2017-07-12 06:08] LABS: Allen Test Positive
[2017-07-12 06:09] LABS: ABG HCO3 27.1 MMOL/L (20-26); ABG Oxygen Saturation 97.3 % (95-100); ABG PCO2 35.1 MM HG (35-48); ABG PH 7.505 (7.35-7.45); ABG PO2 97.7 MM HG (80-95); ABG TCO2 28.1 MMOL/L (23-27)
[2017-07-12] MEDS: methylPREDNISolone SOD SUC 40 MG/1 ML VIAL IV SCH ×3 (06:39→22:32)
[2017-07-12] MEDS: POTASSIUM CHLORIDE RIDER 20 MEQ in PREMIX 1 EACH IV PRN ×2 (06:39→10:51)
[2017-07-12] MEDS: fentaNYL INJ 1,250 MCG in SODIUM CHLORIDE 0.9% 225 ML IV SCH (07:51)
[2017-07-12] MEDS: MULTIVITAMIN LIQUID (CENTRUM) 60 ML BOTTLE PO SCH (09:30)
[2017-07-12] MEDS: LEVOFLOXACIN INJ 500 MG in PREMIX 1 EACH IV SCH (09:30)
[2017-07-12] MEDS: SODIUM HYPOCHLORITE 0.25% IRRIG 473 ML BOTTLE TOP SCH (09:30)
[2017-07-12] MEDS: METOPROLOL TARTRATE 25 MG TABLET PO SCH ×2 (09:31→21:00)
[2017-07-12] MEDS: ASCORBIC ACID 500 MG TABLET PO SCH ×2 (09:31→21:00)
[2017-07-12] MEDS: ZINC SULFATE 220 MG CAPSULE PO SCH (09:31)
[2017-07-12] MEDS: DOCUSATE SODIUM 100 MG CAPSULE PEG SCH ×2 (09:31→21:00)
[2017-07-12] MEDS: FERRIC GLUCONATE COMPLEX 125 MG in SODIUM CHLORIDE 0.9% 100 ML IV SCH (10:23)
[2017-07-12] MEDS: LINEZOLID INJ 600 MG in PREMIX 1 EACH IV SCH ×2 (11:34→22:32)
[2017-07-12] MEDS: NOREPINEPHRINE 8 MG in SODIUM CHLORIDE 0.9% 242 ML IV SCH (13:09)
[2017-07-12] MEDS: ENOXAPARIN 30 MG/0.3 ML SYRINGE SUBCUT SCH (21:00)
[2017-07-12] MEDS: PANTOPRAZOLE 40 MG VIAL IV SCH (21:00)
[2017-07-13 03:41] LABS: ABG Base Excess 0.9 MMOL/L (-2.5-2.5); ABG HCO3 24.1 MMOL/L (20-26); ABG Oxygen Saturation 95.1 % (95-100); ABG PCO2 33.7 MM HG (35-48); ABG PH 7.473 (7.35-7.45); ABG PO2 76.2 MM HG (80-95); ABG TCO2 25.2 MMOL/L (23-27); Allen Test Positive
[2017-07-13] MEDS: methylPREDNISolone SOD SUC 40 MG/1 ML VIAL IV SCH ×3 (05:50→22:07)
[2017-07-13] MEDS: INSULIN REGULAR 100 UNIT/ML SUBCUT SCH ×3 (05:50→17:32)
[2017-07-13 06:19] LABS: Basophils % 0.1 % (0.0-0.8); Hematocrit 34.9 VOL% (42.0-52.0); Hemoglobin 11.3 GM/DL (14.0-18.0); Immature Granulocytes % 0.5 %; Immature Granulocytes Absolute 0.08 #; Lymphocytes # 0.4 10*3/uL (1.4-4.0); Lymphocytes % 2.6 % (21.2-54.2); Mean Corpuscular HGB Conc 32.4 GM/DL (32-36); Mean Corpuscular Hemoglobin 26 PG (27-34); Mean Platelet Volume 11.8 FL (9.6-12.0); Monocytes # 0.4 10*3/uL (0.11-0.8); Monocytes % 2.8 % (1.7-12.7); Neutrophils # 14.3 10*3/uL (1.4-7.4); Platelet Count 394 T/CUMM (130-400); Red Blood Count 4.31 MC/CUMM (3.8-5.5); Red Cell Distribution Width 18.5 % (9.3-17.3); White Blood Count 15.2 T/CUMM (4-12)
[2017-07-13 06:48] LABS: Calcium 8.2 MG/DL (8.5-10.1); Potassium 3.2 MMOL/L (3.5-5.1)
[2017-07-13 06:50] LABS: Hypochromasia 1+; Lymphocytes 3 % (20-55); Microcytosis 1+; Segmented Neutrophils 92 % (50-85); Total Cells Counted 100
[2017-07-13 06:51] LABS: Platelet Estimate Normal
[2017-07-13] MEDS: ASCORBIC ACID 500 MG TABLET PO SCH ×2 (08:15→21:12)
[2017-07-13] MEDS: MULTIVITAMIN LIQUID (CENTRUM) 60 ML BOTTLE PO SCH (08:15)
[2017-07-13] MEDS: METOPROLOL TARTRATE 25 MG TABLET PO SCH ×2 (08:15→21:12)
[2017-07-13] MEDS: DOCUSATE SODIUM 100 MG CAPSULE PEG SCH ×2 (08:15→21:12)
[2017-07-13] MEDS: SODIUM HYPOCHLORITE 0.25% IRRIG 473 ML BOTTLE TOP SCH (08:16)
[2017-07-13] MEDS: LEVOFLOXACIN INJ 500 MG in PREMIX 1 EACH IV SCH (08:16)
[2017-07-13] MEDS: ZINC SULFATE 220 MG CAPSULE PO SCH (08:19)
[2017-07-13] MEDS: FERRIC GLUCONATE COMPLEX 125 MG in SODIUM CHLORIDE 0.9% 100 ML IV SCH (08:20)
[2017-07-13 09:59] LABS: Amorphous Crystals,Urine Occasional /HPF (Few); Apearance,Urine Slightly Hazy (Clear); Bacteria,Urine Occasional /HPF (Few); Bilirubin,Urine Negative (Negative); Blood, Urine Negative (Negative); Glucose,Urine (UA) Negative (Negative); Ketones,Urine Negative (Negative); Mucus,Urine Occasional /LPF (Occasional); Nitrite,Urine Negative (Negative); Protein,Urine Negative; RBC,Urine 1 /HPF (0-4); Squamous Epithelial Cell,Urine Occasional /HPF (0-10); Urine Color Yellow (Yellow); Urine Specific Gravity 1.012 (1.001-1.035); Urine Urobilinogen < 2.0 EU/DL (0.2-1.0); WBC,Urine 7 /HPF (0-6)
[2017-07-13] MEDS: LINEZOLID INJ 600 MG in PREMIX 1 EACH IV SCH (11:24)
[2017-07-13] MEDS: POTASSIUM CHLORIDE RIDER 20 MEQ in PREMIX 1 EACH IV PRN ×3 (12:59→23:55)
[2017-07-13] MEDS: ALBUTEROL/IPRATROPIUM 3 ML NEB RESP TX SCH ×2 (13:37→19:00)
[2017-07-13] MEDS: PANTOPRAZOLE 40 MG VIAL IV SCH (21:12)
[2017-07-13] MEDS: ENOXAPARIN 30 MG/0.3 ML SYRINGE SUBCUT SCH (21:13)
[2017-07-14] MEDS: INSULIN REGULAR 100 UNIT/ML SUBCUT SCH ×4 (00:02→17:19)
[2017-07-14] MEDS: LINEZOLID INJ 600 MG in PREMIX 1 EACH IV SCH ×2 (00:02→10:26)
[2017-07-14] MEDS: ALBUTEROL/IPRATROPIUM 3 ML NEB RESP TX SCH ×4 (00:29→19:01)
[2017-07-14] MEDS: POTASSIUM CHLORIDE RIDER 20 MEQ in PREMIX 1 EACH IV PRN (02:15)
[2017-07-14 03:37] LABS: ABG Base Excess -3.9 MMOL/L (-2.5-2.5); ABG HCO3 21.1 MMOL/L (20-26); ABG Oxygen Saturation 89.3 % (95-100); ABG PCO2 38.5 MM HG (35-48); ABG PH 7.352 (7.35-7.45); ABG PO2 59.2 MM HG (80-95); ABG TCO2 18.9 MMOL/L (23-27)
[2017-07-14] MEDS: methylPREDNISolone SOD SUC 40 MG/1 ML VIAL IV SCH ×3 (05:52→22:13)
[2017-07-14 06:59] LABS: Basophils % 0.1 % (0.0-0.8); Hematocrit 40.5 VOL% (42.0-52.0); Hemoglobin 12.8 GM/DL (14.0-18.0); Immature Granulocytes % 0.7 %; Immature Granulocytes Absolute 0.13 #; Lymphocytes # 0.5 10*3/uL (1.4-4.0); Lymphocytes % 2.8 % (21.2-54.2); Mean Corpuscular HGB Conc 31.6 GM/DL (32-36); Mean Corpuscular Hemoglobin 26 PG (27-34); Mean Corpuscular Volume 81.5 FL (87-102); Mean Platelet Volume 11.5 FL (9.6-12.0); Monocytes # 1.2 10*3/uL (0.11-0.8); Monocytes % 6.6 % (1.7-12.7); Neutrophils # 16.8 10*3/uL (1.4-7.4); Neutrophils % 89.8 % (38.7-73.9); Platelet Count 441 T/CUMM (130-400); Red Blood Count 4.97 MC/CUMM (3.8-5.5); White Blood Count 18.7 T/CUMM (4-12)
[2017-07-14 07:23] LABS: Hypochromasia 1+; Lymphocytes 2 % (20-55); Segmented Neutrophils 94 % (50-85); Total Cells Counted 100
[2017-07-14 07:24] LABS: Microcytosis 1+; Platelet Estimate Increased
[2017-07-14 07:27] LABS: Calcium 8.2 MG/DL (8.5-10.1); Osmolality,Calculated 282.5 MOS/KG (273-304); Potassium 4.1 MMOL/L (3.5-5.1)
[2017-07-14] MEDS: MULTIVITAMIN LIQUID (CENTRUM) 60 ML BOTTLE PO SCH (08:47)
[2017-07-14] MEDS: SODIUM HYPOCHLORITE 0.25% IRRIG 473 ML BOTTLE TOP SCH (08:47)
[2017-07-14] MEDS: ASCORBIC ACID 500 MG TABLET PO SCH ×2 (08:47→22:13)
[2017-07-14] MEDS: DOCUSATE SODIUM 100 MG CAPSULE PEG SCH ×2 (08:47→22:13)
[2017-07-14] MEDS: METOPROLOL TARTRATE 25 MG TABLET PO SCH ×2 (08:48→22:13)
[2017-07-14] MEDS: LEVOFLOXACIN INJ 500 MG in PREMIX 1 EACH IV SCH (08:48)
[2017-07-14] MEDS: FERRIC GLUCONATE COMPLEX 125 MG in SODIUM CHLORIDE 0.9% 100 ML IV SCH (08:54)
[2017-07-14] MEDS: ZINC SULFATE 220 MG CAPSULE PO SCH (08:55)
[2017-07-14] MEDS: amLODIPine 2.5 MG TABLET PO SCH (08:55)
[2017-07-14] MEDS: DORNASE ALFA 2.5 MG/2.5 ML VIAL RESP TX SCH ×2 (13:32→19:01)
[2017-07-14] MEDS ORDERED: ETOMIDATE 20 MG/10 ML VIAL IV ONE ×2 (20:19→20:31)
[2017-07-14] MEDS ORDERED: LORazepam 2 MG/1 ML VIAL ONE (20:21)
[2017-07-14] MEDS ORDERED: LORazepam 2 MG/1 ML VIAL IV ONE (20:31)
[2017-07-14] MEDS: PROPOFOL 1,000 MG/100 ML BOTTLE IV SCH (20:44)
[2017-07-14] MEDS: LABETALOL 20 MG/4 ML SYRINGE IV PRN (21:12)
[2017-07-14 21:30] LABS: ABG Base Excess -5.5 MMOL/L (-2.5-2.5); ABG HCO3 19.2 MMOL/L (20-26); ABG Oxygen Saturation 98.6 % (95-100); ABG PCO2 35.3 MM HG (35-48); ABG PH 7.354 (7.35-7.45); ABG PO2 139.8 MM HG (80-95); ABG TCO2 20.3 MMOL/L (23-27)
[2017-07-14 21:40] LABS: Calcium 8.4 MG/DL (8.5-10.1); Osmolality,Calculated 287.3 MOS/KG (273-304); Potassium 3.2 MMOL/L (3.5-5.1)
[2017-07-14] MEDS: ENOXAPARIN 30 MG/0.3 ML SYRINGE SUBCUT SCH (22:13)
[2017-07-14] MEDS: PANTOPRAZOLE 40 MG VIAL IV SCH (22:14)
[2017-07-15] MEDS: ALBUTEROL/IPRATROPIUM 3 ML NEB RESP TX SCH ×4 (00:01→20:18)
[2017-07-15] MEDS: INSULIN REGULAR 100 UNIT/ML SUBCUT SCH ×4 (01:25→18:39)
[2017-07-15] MEDS: LINEZOLID INJ 600 MG in PREMIX 1 EACH IV SCH ×2 (01:26→13:30)
[2017-07-15 03:55] LABS: ABG Base Excess -4.3 MMOL/L (-2.5-2.5); ABG HCO3 20.9 MMOL/L (20-26); ABG PCO2 31.1 MM HG (35-48); ABG PH 7.404 (7.35-7.45); ABG TCO2 17.3 MMOL/L (23-27); Allen Test Positive; Pt O2 Delivery Device Ventilator
[2017-07-15 04:08] LABS: Basophils % 0.1 % (0.0-0.8); Hematocrit 36.2 VOL% (42.0-52.0); Hemoglobin 11.5 GM/DL (14.0-18.0); Immature Granulocytes % 0.6 %; Lymphocytes # 0.4 10*3/uL (1.4-4.0); Lymphocytes % 2.3 % (21.2-54.2); Mean Corpuscular HGB Conc 31.8 GM/DL (32-36); Mean Corpuscular Hemoglobin 26 PG (27-34); Mean Corpuscular Volume 82.6 FL (87-102); Mean Platelet Volume 11.6 FL (9.6-12.0); Monocytes # 0.6 10*3/uL (0.11-0.8); Monocytes % 3.6 % (1.7-12.7); Neutrophils # 16.5 10*3/uL (1.4-7.4); Neutrophils % 93.4 % (38.7-73.9); Platelet Count 357 T/CUMM (130-400); Red Blood Count 4.38 MC/CUMM (3.8-5.5); Red Cell Distribution Width 19.1 % (9.3-17.3); White Blood Count 17.7 T/CUMM (4-12)
[2017-07-15 04:14] LABS: PT Patient Result 10.7 SECS; Partial Thromboplastin Time 36.6 SECS (0-40)
[2017-07-15 04:34] LABS: Lymphocytes 2 % (20-55); Segmented Neutrophils 96 % (50-85)
[2017-07-15 04:35] LABS: Calcium 8.1 MG/DL (8.5-10.1); Hypochromasia 1+; Osmolality,Calculated 289.4 MOS/KG (273-304); Potassium 3.6 MMOL/L (3.5-5.1)
[2017-07-15 04:36] LABS: Platelet Estimate Normal; Total Cells Counted 100
[2017-07-15 05:04] LABS: Prealbumin 20.8 MG/DL (20-40)
[2017-07-15] MEDS: methylPREDNISolone SOD SUC 40 MG/1 ML VIAL IV SCH ×3 (06:24→22:32)
[2017-07-15] MEDS ORDERED: SODIUM CHLORIDE 0.9% 250 ML IV ONE (06:31)
[2017-07-15] MEDS: LEVOFLOXACIN INJ 500 MG in PREMIX 1 EACH IV SCH (09:00)
[2017-07-15] MEDS: DORNASE ALFA 2.5 MG/2.5 ML VIAL RESP TX SCH ×2 (09:40→20:43)
[2017-07-15] MEDS: MULTIVITAMIN LIQUID (CENTRUM) 60 ML BOTTLE PO SCH (10:05)
[2017-07-15] MEDS: DOCUSATE SODIUM 100 MG CAPSULE PEG SCH ×2 (10:06→20:33)
[2017-07-15] MEDS: SODIUM HYPOCHLORITE 0.25% IRRIG 473 ML BOTTLE TOP SCH (10:06)
[2017-07-15] MEDS: ZINC SULFATE 220 MG CAPSULE PO SCH (10:06)
[2017-07-15] MEDS: ASCORBIC ACID 500 MG TABLET PO SCH ×2 (10:06→20:33)
[2017-07-15] MEDS: METOPROLOL TARTRATE 25 MG TABLET PO SCH ×2 (10:55→20:33)
[2017-07-15] MEDS: amLODIPine 2.5 MG TABLET PO SCH (10:55)
[2017-07-15] MEDS: FERRIC GLUCONATE COMPLEX 125 MG in SODIUM CHLORIDE 0.9% 100 ML IV SCH (11:24)
[2017-07-15] MEDS ORDERED: hydrALAZINE 20 MG/1 ML VIAL IV PRN (11:49)
[2017-07-15] MEDS: PANTOPRAZOLE 40 MG VIAL IV SCH (20:32)
[2017-07-15] MEDS: PROPOFOL 1,000 MG/100 ML BOTTLE IV SCH (20:33)
[2017-07-15] MEDS: ENOXAPARIN 30 MG/0.3 ML SYRINGE SUBCUT SCH (20:33)
[2017-07-16] MEDS: INSULIN REGULAR 100 UNIT/ML SUBCUT SCH ×5 (00:10→23:26)
[2017-07-16] MEDS: LINEZOLID INJ 600 MG in PREMIX 1 EACH IV SCH ×2 (00:10→12:13)
[2017-07-16] MEDS: ALBUTEROL/IPRATROPIUM 3 ML NEB RESP TX SCH ×4 (00:36→19:31)
[2017-07-16 03:53] LABS: Pt O2 Delivery Device Ventilator
[2017-07-16 03:54] LABS: ABG HCO3 21.1 MMOL/L (20-26); ABG PCO2 31.2 MM HG (35-48); ABG PH 7.409 (7.35-7.45); ABG TCO2 17.8 MMOL/L (23-27)
[2017-07-16] MEDS: methylPREDNISolone SOD SUC 40 MG/1 ML VIAL IV SCH ×3 (06:18→22:45)
[2017-07-16] MEDS: DORNASE ALFA 2.5 MG/2.5 ML VIAL RESP TX SCH ×2 (07:10→19:46)
[2017-07-16 07:33] LABS: Basophils % 0.1 % (0.0-0.8); Hematocrit 33.5 VOL% (42.0-52.0); Hemoglobin 10.4 GM/DL (14.0-18.0); Immature Granulocytes % 0.7 %; Immature Granulocytes Absolute 0.09 #; Lymphocytes # 0.4 10*3/uL (1.4-4.0); Lymphocytes % 2.9 % (21.2-54.2); Mean Corpuscular Hemoglobin 26 PG (27-34); Mean Platelet Volume 11.7 FL (9.6-12.0); Monocytes # 0.4 10*3/uL (0.11-0.8); Monocytes % 3.2 % (1.7-12.7); Neutrophils # 12.1 10*3/uL (1.4-7.4); Neutrophils % 93.1 % (38.7-73.9); Platelet Count 319 T/CUMM (130-400); Red Blood Count 3.99 MC/CUMM (3.8-5.5); Red Cell Distribution Width 19.8 % (9.3-17.3)
[2017-07-16] MEDS ORDERED: CHLORHEXIDINE 4% SOLN 118 ML BOTTLE TOP ONE (07:45)
[2017-07-16 07:53] LABS: Giant Platelets Few; Hypochromasia 1+; Lymphocytes 2 % (20-55); Microcytosis Slight; Ovalocytes Slight; Platelet Estimate Adequate; Segmented Neutrophils 95 % (50-85); Total Cells Counted 100
[2017-07-16 08:18] LABS: Calcium 8.4 MG/DL (8.5-10.1); Osmolality,Calculated 299.3 MOS/KG (273-304); Potassium 3.6 MMOL/L (3.5-5.1)
[2017-07-16] MEDS: DOCUSATE SODIUM 100 MG CAPSULE PEG SCH ×2 (08:27→20:11)
[2017-07-16] MEDS: ASCORBIC ACID 500 MG TABLET PO SCH ×2 (08:27→20:11)
[2017-07-16] MEDS: amLODIPine 2.5 MG TABLET PO SCH (08:27)
[2017-07-16] MEDS: ZINC SULFATE 220 MG CAPSULE PO SCH (08:27)
[2017-07-16] MEDS: METOPROLOL TARTRATE 25 MG TABLET PO SCH ×2 (08:27→20:11)
[2017-07-16] MEDS: SODIUM HYPOCHLORITE 0.25% IRRIG 473 ML BOTTLE TOP SCH (08:28)
[2017-07-16] MEDS: LEVOFLOXACIN INJ 500 MG in PREMIX 1 EACH IV SCH (08:28)
[2017-07-16] MEDS: MULTIVITAMIN LIQUID (CENTRUM) 60 ML BOTTLE PO SCH (08:29)
[2017-07-16] MEDS: PROPOFOL 1,000 MG/100 ML BOTTLE IV SCH (20:00)
[2017-07-16] MEDS: ENOXAPARIN 30 MG/0.3 ML SYRINGE SUBCUT SCH (20:11)
[2017-07-16] MEDS: PANTOPRAZOLE 40 MG VIAL IV SCH (20:11)
[2017-07-17] MEDS: ALBUTEROL/IPRATROPIUM 3 ML NEB RESP TX SCH ×4 (00:26→19:59)
[2017-07-17] MEDS: LINEZOLID INJ 600 MG in PREMIX 1 EACH IV SCH ×2 (00:45→15:53)
[2017-07-17 03:45] LABS: ABG Base Excess -2.1 MMOL/L (-2.5-2.5); ABG HCO3 22.7 MMOL/L (20-26); ABG Oxygen Saturation 99.3 % (95-100); ABG PCO2 32.8 MM HG (35-48); ABG PH 7.427 (7.35-7.45); ABG TCO2 19.5 MMOL/L (23-27); Pt O2 Delivery Device Ventilator
[2017-07-17 04:58] LABS: Basophils % 0.1 % (0.0-0.8); Hematocrit 32.4 VOL% (42.0-52.0); Hemoglobin 10.1 GM/DL (14.0-18.0); Immature Granulocytes % 0.9 %; Immature Granulocytes Absolute 0.14 #; Lymphocytes # 0.3 10*3/uL (1.4-4.0); Lymphocytes % 2.1 % (21.2-54.2); Mean Corpuscular HGB Conc 31.2 GM/DL (32-36); Mean Corpuscular Hemoglobin 26 PG (27-34); Mean Corpuscular Volume 83.1 FL (87-102); Mean Platelet Volume 11.8 FL (9.6-12.0); Monocytes # 0.8 10*3/uL (0.11-0.8); Monocytes % 5.1 % (1.7-12.7); Neutrophils # 13.8 10*3/uL (1.4-7.4); Neutrophils % 91.8 % (38.7-73.9); Platelet Count 316 T/CUMM (130-400); Red Cell Distribution Width 19.9 % (9.3-17.3)
[2017-07-17 05:16] LABS: PT Patient Result 10.2 SECS; Partial Thromboplastin Time 31.9 SECS (0-40)
[2017-07-17 05:24] LABS: Calcium 8.1 MG/DL (8.5-10.1); Osmolality,Calculated 296.4 MOS/KG (273-304); Potassium 3.7 MMOL/L (3.5-5.1)
[2017-07-17 05:27] LABS: Hypochromasia 1+; Microcytosis 1+
[2017-07-17 05:28] LABS: Ovalocytes Slight; Platelet Estimate Normal
[2017-07-17] MEDS: INSULIN REGULAR 100 UNIT/ML SUBCUT SCH ×3 (06:17→17:45)
[2017-07-17] MEDS: methylPREDNISolone SOD SUC 40 MG/1 ML VIAL IV SCH ×3 (06:18→21:59)
[2017-07-17] MEDS: DORNASE ALFA 2.5 MG/2.5 ML VIAL RESP TX SCH ×2 (07:21→20:05)
[2017-07-17] MEDS: ASCORBIC ACID 500 MG TABLET PO SCH ×2 (09:07→22:57)
[2017-07-17] MEDS: DOCUSATE SODIUM 100 MG CAPSULE PEG SCH ×2 (09:07→21:55)
[2017-07-17] MEDS: METOPROLOL TARTRATE 25 MG TABLET PO SCH ×2 (09:07→22:00)
[2017-07-17] MEDS: amLODIPine 2.5 MG TABLET PO SCH (09:07)
[2017-07-17] MEDS: LEVOFLOXACIN INJ 500 MG in PREMIX 1 EACH IV SCH (09:07)
[2017-07-17] MEDS: MULTIVITAMIN LIQUID (CENTRUM) 60 ML BOTTLE PO SCH (09:07)
[2017-07-17] MEDS: ZINC SULFATE 220 MG CAPSULE PO SCH (09:07)
[2017-07-17] MEDS: SODIUM HYPOCHLORITE 0.25% IRRIG 473 ML BOTTLE TOP SCH (09:07)
[2017-07-17] MEDS: FUROSEMIDE 40 MG/4 ML VIAL IV SCH (15:54)
[2017-07-17] MEDS: ENOXAPARIN 30 MG/0.3 ML SYRINGE SUBCUT SCH (21:55)
[2017-07-17] MEDS: PANTOPRAZOLE 40 MG VIAL IV SCH (21:55)
[2017-07-17] MEDS: PROPOFOL 1,000 MG/100 ML BOTTLE IV SCH (22:53)
[2017-07-18] MEDS: ALBUTEROL/IPRATROPIUM 3 ML NEB RESP TX SCH ×4 (00:37→19:10)
[2017-07-18] MEDS: LINEZOLID INJ 600 MG in PREMIX 1 EACH IV SCH ×2 (01:00→14:36)
[2017-07-18] MEDS: INSULIN REGULAR 100 UNIT/ML SUBCUT SCH ×4 (01:46→18:06)
[2017-07-18 03:27] LABS: ABG Base Excess 0.8 MMOL/L (-2.5-2.5); ABG HCO3 24.1 MMOL/L (20-26); ABG Oxygen Saturation 99.1 % (95-100); ABG PCO2 33.9 MM HG (35-48); ABG PO2 197.9 MM HG (80-95); ABG TCO2 25.2 MMOL/L (23-27); Allen Test Positive; Pt O2 Delivery Device Ventilator
[2017-07-18] MEDS: methylPREDNISolone SOD SUC 40 MG/1 ML VIAL IV SCH ×3 (06:05→21:53)
[2017-07-18] MEDS: MORPHINE 2 MG/1 ML SYRINGE IV PRN ×2 (06:07→21:54)
[2017-07-18 06:12] LABS: Basophils % 0.1 % (0.0-0.8); Hematocrit 34.2 VOL% (42.0-52.0); Hemoglobin 10.9 GM/DL (14.0-18.0); Immature Granulocytes Absolute 0.14 #; Lymphocytes # 0.4 10*3/uL (1.4-4.0); Lymphocytes % 3.1 % (21.2-54.2); Mean Corpuscular HGB Conc 31.9 GM/DL (32-36); Mean Corpuscular Hemoglobin 26 PG (27-34); Mean Corpuscular Volume 81.4 FL (87-102); Mean Platelet Volume 11.6 FL (9.6-12.0); Monocytes # 0.6 10*3/uL (0.11-0.8); Monocytes % 4.7 % (1.7-12.7); Neutrophils # 12.2 10*3/uL (1.4-7.4); Neutrophils % 91.1 % (38.7-73.9); Platelet Count 303 T/CUMM (130-400); Red Cell Distribution Width 20.1 % (9.3-17.3); White Blood Count 13.4 T/CUMM (4-12)
[2017-07-18 06:34] LABS: Giant Platelets Few; Hypochromasia 1+; Lymphocytes 4 % (20-55); Platelet Estimate Adequate; Segmented Neutrophils 91 % (50-85); Total Cells Counted 100
[2017-07-18 06:35] LABS: Microcytosis Slight
[2017-07-18 06:41] LABS: Calcium 8.1 MG/DL (8.5-10.1); Osmolality,Calculated 295.4 MOS/KG (273-304); Potassium 3.5 MMOL/L (3.5-5.1)
[2017-07-18 06:59] LABS: Prealbumin 28.9 MG/DL (20-40)
[2017-07-18] MEDS: DORNASE ALFA 2.5 MG/2.5 ML VIAL RESP TX SCH ×2 (08:03→19:20)
[2017-07-18] MEDS: amLODIPine 2.5 MG TABLET PO SCH (09:21)
[2017-07-18] MEDS: ZINC SULFATE 220 MG CAPSULE PO SCH (09:21)
[2017-07-18] MEDS: METOPROLOL TARTRATE 25 MG TABLET PO SCH ×2 (09:21→21:54)
[2017-07-18] MEDS: ASCORBIC ACID 500 MG TABLET PO SCH ×2 (09:22→21:54)
[2017-07-18] MEDS: LEVOFLOXACIN INJ 500 MG in PREMIX 1 EACH IV SCH (09:22)
[2017-07-18] MEDS: DOCUSATE SODIUM 100 MG CAPSULE PEG SCH ×2 (09:23→21:54)
[2017-07-18] MEDS: FUROSEMIDE 40 MG/4 ML VIAL IV SCH (09:23)
[2017-07-18] MEDS: MULTIVITAMIN LIQUID (CENTRUM) 60 ML BOTTLE PO SCH (09:23)
[2017-07-18] MEDS: SODIUM HYPOCHLORITE 0.25% IRRIG 473 ML BOTTLE TOP SCH (09:23)
[2017-07-18] MEDS: PROPOFOL 1,000 MG/100 ML BOTTLE IV SCH (21:44)
[2017-07-18] MEDS: PANTOPRAZOLE 40 MG VIAL IV SCH (21:53)
[2017-07-18] MEDS: ENOXAPARIN 30 MG/0.3 ML SYRINGE SUBCUT SCH (21:54)
[2017-07-19] MEDS: INSULIN REGULAR 100 UNIT/ML SUBCUT SCH ×4 (00:09→17:28)
[2017-07-19] MEDS: ALBUTEROL/IPRATROPIUM 3 ML NEB RESP TX SCH ×4 (01:03→19:32)
[2017-07-19 03:23] LABS: ABG Base Excess 2.6 MMOL/L (-2.5-2.5); ABG HCO3 26.7 MMOL/L (20-26); ABG Oxygen Saturation 96.2 % (95-100); ABG PCO2 40.1 MM HG (35-48); ABG PH 7.435 (7.35-7.45); ABG PO2 74.7 MM HG (80-95); ABG TCO2 24.2 MMOL/L (23-27); Allen Test Positive; Pt O2 Delivery Device Ventilator
[2017-07-19] MEDS: methylPREDNISolone SOD SUC 40 MG/1 ML VIAL IV SCH ×3 (05:33→21:54)
[2017-07-19 05:39] LABS: Basophils % 0.1 % (0.0-0.8); Hematocrit 33.6 VOL% (42.0-52.0); Hemoglobin 10.6 GM/DL (14.0-18.0); Immature Granulocytes % 1.4 %; Immature Granulocytes Absolute 0.16 #; Lymphocytes # 0.3 10*3/uL (1.4-4.0); Lymphocytes % 2.7 % (21.2-54.2); Mean Corpuscular HGB Conc 31.5 GM/DL (32-36); Mean Corpuscular Hemoglobin 26 PG (27-34); Mean Corpuscular Volume 82.4 FL (87-102); Mean Platelet Volume 11.4 FL (9.6-12.0); Monocytes # 1.1 10*3/uL (0.11-0.8); Monocytes % 9.7 % (1.7-12.7); Neutrophils # 10.1 10*3/uL (1.4-7.4); Neutrophils % 86.1 % (38.7-73.9); Platelet Count 272 T/CUMM (130-400); Red Blood Count 4.08 MC/CUMM (3.8-5.5); Red Cell Distribution Width 20.2 % (9.3-17.3); White Blood Count 11.7 T/CUMM (4-12)
[2017-07-19 06:12] LABS: Calcium 7.8 MG/DL (8.5-10.1); Osmolality,Calculated 299.4 MOS/KG (273-304); Potassium 3.4 MMOL/L (3.5-5.1)
[2017-07-19 06:17] LABS: Lymphocytes 10 % (20-55); Platelet Estimate Normal; Segmented Neutrophils 86 % (50-85); Total Cells Counted 100
[2017-07-19] MEDS: DORNASE ALFA 2.5 MG/2.5 ML VIAL RESP TX SCH ×3 (07:39→19:39)
[2017-07-19] MEDS ORDERED: POTASSIUM CHLORIDE RIDER 100 ML IV ONE (09:05)
[2017-07-19] MEDS: DOCUSATE SODIUM 100 MG CAPSULE PEG SCH ×2 (09:11→20:29)
[2017-07-19] MEDS: MULTIVITAMIN LIQUID (CENTRUM) 60 ML BOTTLE PO SCH (09:11)
[2017-07-19] MEDS: ZINC SULFATE 220 MG CAPSULE PO SCH (09:11)
[2017-07-19] MEDS: amLODIPine 2.5 MG TABLET PO SCH (09:11)
[2017-07-19] MEDS: FUROSEMIDE 40 MG/4 ML VIAL IV SCH (09:11)
[2017-07-19] MEDS: SODIUM HYPOCHLORITE 0.25% IRRIG 473 ML BOTTLE TOP SCH (09:12)
[2017-07-19] MEDS: ASCORBIC ACID 500 MG TABLET PO SCH ×2 (09:12→20:29)
[2017-07-19] MEDS: LEVOFLOXACIN INJ 500 MG in PREMIX 1 EACH IV SCH (09:12)
[2017-07-19] MEDS: POTASSIUM CHLORIDE RIDER 20 MEQ in PREMIX 1 EACH IV PRN (09:13)
[2017-07-19] MEDS: METOPROLOL TARTRATE 25 MG TABLET PO SCH ×2 (09:13→20:29)
[2017-07-19] MEDS: LINEZOLID INJ 600 MG in PREMIX 1 EACH IV SCH ×2 (13:54)
[2017-07-19] MEDS: PROPOFOL 1,000 MG/100 ML BOTTLE IV SCH ×2 (15:41→21:54)
[2017-07-19] MEDS: ENOXAPARIN 30 MG/0.3 ML SYRINGE SUBCUT SCH (20:29)
[2017-07-19] MEDS: PANTOPRAZOLE 40 MG VIAL IV SCH (20:29)
[2017-07-20] MEDS: INSULIN REGULAR 100 UNIT/ML SUBCUT SCH ×5 (00:28→23:41)
[2017-07-20] MEDS: LINEZOLID INJ 600 MG in PREMIX 1 EACH IV SCH ×2 (00:28→14:15)
[2017-07-20] MEDS: ALBUTEROL/IPRATROPIUM 3 ML NEB RESP TX SCH ×4 (00:47→18:55)
[2017-07-20 04:34] LABS: ABG Base Excess 6.1 MMOL/L (-2.5-2.5); ABG HCO3 29.4 MMOL/L (20-26); ABG Oxygen Saturation 98.9 % (95-100); ABG PCO2 37.8 MM HG (35-48); ABG PH 7.509 (7.35-7.45); ABG PO2 143.1 MM HG (80-95); ABG TCO2 30.6 MMOL/L (23-27); Pt O2 Delivery Device Ventilator
[2017-07-20 06:03] LABS: Hematocrit 33.3 VOL% (42.0-52.0); Immature Granulocytes % 0.8 %; Immature Granulocytes Absolute 0.11 #; Lymphocytes # 0.3 10*3/uL (1.4-4.0); Lymphocytes % 2.5 % (21.2-54.2); Mean Corpuscular Hemoglobin 27 PG (27-34); Mean Corpuscular Volume 80.2 FL (87-102); Mean Platelet Volume 11.3 FL (9.6-12.0); Monocytes # 1.2 10*3/uL (0.11-0.8); Monocytes % 9.2 % (1.7-12.7); Neutrophils # 11.7 10*3/uL (1.4-7.4); Neutrophils % 87.5 % (38.7-73.9); Platelet Count 248 T/CUMM (130-400); Red Blood Count 4.15 MC/CUMM (3.8-5.5); Red Cell Distribution Width 20.6 % (9.3-17.3); White Blood Count 13.4 T/CUMM (4-12)
[2017-07-20] MEDS: methylPREDNISolone SOD SUC 40 MG/1 ML VIAL IV SCH ×3 (06:17→22:11)
[2017-07-20 06:28] LABS: Calcium 8.2 MG/DL (8.5-10.1); Osmolality,Calculated 299.5 MOS/KG (273-304); Potassium 3.4 MMOL/L (3.5-5.1)
[2017-07-20 06:37] LABS: Band Neutrophils 1 % (0-10); Hypochromasia 1+; Lymphocytes 4 % (20-55); Platelet Estimate Adequate; Segmented Neutrophils 88 % (50-85); Total Cells Counted 100
[2017-07-20] MEDS: DORNASE ALFA 2.5 MG/2.5 ML VIAL RESP TX SCH (07:53)
[2017-07-20] MEDS ORDERED: POTASSIUM CHLORIDE 20 MEQ TABLET PO SCH (09:00)
[2017-07-20] MEDS: LEVOFLOXACIN INJ 500 MG in PREMIX 1 EACH IV SCH (09:17)
[2017-07-20] MEDS: METOPROLOL TARTRATE 25 MG TABLET PO SCH ×2 (09:19→20:02)
[2017-07-20] MEDS: FUROSEMIDE 40 MG/4 ML VIAL IV SCH (09:19)
[2017-07-20] MEDS: ASCORBIC ACID 500 MG TABLET PO SCH ×2 (09:19→20:02)
[2017-07-20] MEDS: DOCUSATE SODIUM 100 MG CAPSULE PEG SCH ×2 (09:19→20:02)
[2017-07-20] MEDS: MULTIVITAMIN LIQUID (CENTRUM) 60 ML BOTTLE PO SCH (09:19)
[2017-07-20] MEDS: amLODIPine 2.5 MG TABLET PO SCH (09:19)
[2017-07-20] MEDS: SODIUM HYPOCHLORITE 0.25% IRRIG 473 ML BOTTLE TOP SCH (09:19)
[2017-07-20] MEDS: PROPOFOL 1,000 MG/100 ML BOTTLE IV SCH ×2 (09:20→21:01)
[2017-07-20] MEDS: ZINC SULFATE 220 MG CAPSULE PO SCH (09:20)
[2017-07-20] MEDS: ENOXAPARIN 30 MG/0.3 ML SYRINGE SUBCUT SCH (20:01)
[2017-07-20] MEDS: PANTOPRAZOLE 40 MG VIAL IV SCH (20:01)
[2017-07-20] MEDS: POTASSIUM CHLORIDE 20 MEQ/15 ML UDCUP PO SCH (20:01)
[2017-07-21] MEDS: LINEZOLID INJ 600 MG in PREMIX 1 EACH IV SCH ×2 (00:13→14:50)
[2017-07-21] MEDS: ALBUTEROL/IPRATROPIUM 3 ML NEB RESP TX SCH ×4 (00:53→20:06)
[2017-07-21 04:51] LABS: ABG Base Excess 6.6 MMOL/L (-2.5-2.5); ABG HCO3 30.4 MMOL/L (20-26); ABG PCO2 40.6 MM HG (35-48); ABG PH 7.485 (7.35-7.45); ABG TCO2 27.2 MMOL/L (23-27); Allen Test Positive; Pt O2 Delivery Device Ventilator
[2017-07-21 04:52] LABS: ABG Oxygen Saturation 99.7 % (95-100)
[2017-07-21] MEDS: PROPOFOL 1,000 MG/100 ML BOTTLE IV SCH (05:10)
[2017-07-21] MEDS: methylPREDNISolone SOD SUC 40 MG/1 ML VIAL IV SCH ×3 (05:21→21:01)
[2017-07-21 05:36] LABS: Basophils % 0.1 % (0.0-0.8); Hematocrit 34.9 VOL% (42.0-52.0); Immature Granulocytes % 0.7 %; Immature Granulocytes Absolute 0.12 #; Lymphocytes # 0.2 10*3/uL (1.4-4.0); Lymphocytes % 1.2 % (21.2-54.2); Mean Corpuscular HGB Conc 31.5 GM/DL (32-36); Mean Corpuscular Hemoglobin 26 PG (27-34); Mean Corpuscular Volume 82.5 FL (87-102); Monocytes # 1.5 10*3/uL (0.11-0.8); Monocytes % 8.9 % (1.7-12.7); Neutrophils # 14.8 10*3/uL (1.4-7.4); Neutrophils % 89.1 % (38.7-73.9); Platelet Count 226 T/CUMM (130-400); Red Blood Count 4.23 MC/CUMM (3.8-5.5); Red Cell Distribution Width 20.6 % (9.3-17.3); White Blood Count 16.6 T/CUMM (4-12)
[2017-07-21] MEDS: INSULIN REGULAR 100 UNIT/ML SUBCUT SCH ×3 (05:47→17:46)
[2017-07-21 06:01] LABS: Osmolality,Calculated 297.4 MOS/KG (273-304); Potassium 4.3 MMOL/L (3.5-5.1)
[2017-07-21 06:33] LABS: Hypochromasia Slight
[2017-07-21] MEDS: DORNASE ALFA 2.5 MG/2.5 ML VIAL RESP TX SCH ×2 (07:00→20:10)
[2017-07-21] MEDS: amLODIPine 2.5 MG TABLET PO SCH (08:37)
[2017-07-21] MEDS: FUROSEMIDE 40 MG/4 ML VIAL IV SCH (08:37)
[2017-07-21] MEDS: SODIUM HYPOCHLORITE 0.25% IRRIG 473 ML BOTTLE TOP SCH (08:37)
[2017-07-21] MEDS: ZINC SULFATE 220 MG CAPSULE PO SCH (08:37)
[2017-07-21] MEDS: METOPROLOL TARTRATE 25 MG TABLET PO SCH ×2 (08:37→20:36)
[2017-07-21] MEDS: POTASSIUM CHLORIDE 20 MEQ/15 ML UDCUP PO SCH ×2 (08:37→20:41)
[2017-07-21] MEDS: DOCUSATE SODIUM 100 MG CAPSULE PEG SCH ×2 (08:38→20:36)
[2017-07-21] MEDS: LEVOFLOXACIN INJ 500 MG in PREMIX 1 EACH IV SCH (08:39)
[2017-07-21] MEDS: ASCORBIC ACID 500 MG TABLET PO SCH ×2 (08:39→20:36)
[2017-07-21] MEDS: MULTIVITAMIN LIQUID (CENTRUM) 60 ML BOTTLE PO SCH (08:47)
[2017-07-21] MEDS: PANTOPRAZOLE 40 MG VIAL IV SCH (20:36)
[2017-07-21] MEDS: ENOXAPARIN 30 MG/0.3 ML SYRINGE SUBCUT SCH (20:36)
[2017-07-22] MEDS: INSULIN REGULAR 100 UNIT/ML SUBCUT SCH ×5 (00:02→23:34)
[2017-07-22] MEDS: LINEZOLID INJ 600 MG in PREMIX 1 EACH IV SCH ×2 (00:03→15:13)
[2017-07-22] MEDS: PROPOFOL 1,000 MG/100 ML BOTTLE IV SCH ×3 (00:16→23:21)
[2017-07-22] MEDS: ALBUTEROL/IPRATROPIUM 3 ML NEB RESP TX SCH ×4 (01:19→19:07)
[2017-07-22 04:34] LABS: ABG Base Excess 10.2 MMOL/L (-2.5-2.5); ABG PCO2 40.5 MM HG (35-48); ABG PH 7.531 (7.35-7.45); ABG TCO2 29.8 MMOL/L (23-27); Allen Test Positive; Pt O2 Delivery Device Ventilator
[2017-07-22 04:36] LABS: ABG Oxygen Saturation 99.8 % (95-100)
[2017-07-22 05:16] LABS: Basophils % 0.1 % (0.0-0.8); Hematocrit 35.2 VOL% (42.0-52.0); Hemoglobin 11.9 GM/DL (14.0-18.0); Immature Granulocytes % 1.1 %; Immature Granulocytes Absolute 0.22 #; Lymphocytes # 0.4 10*3/uL (1.4-4.0); Lymphocytes % 2.1 % (21.2-54.2); Mean Corpuscular HGB Conc 33.8 GM/DL (32-36); Mean Corpuscular Hemoglobin 27 PG (27-34); Mean Corpuscular Volume 80.4 FL (87-102); Mean Platelet Volume 10.9 FL (9.6-12.0); Monocytes % 9.8 % (1.7-12.7); Neutrophils # 18.1 10*3/uL (1.4-7.4); Neutrophils % 86.9 % (38.7-73.9); Platelet Count 213 T/CUMM (130-400); Red Blood Count 4.38 MC/CUMM (3.8-5.5); Red Cell Distribution Width 20.9 % (9.3-17.3); White Blood Count 20.8 T/CUMM (4-12)
[2017-07-22 05:25] LABS: PT Patient Result 10.2 SECS; Partial Thromboplastin Time 27.8 SECS (0-40)
[2017-07-22 05:46] LABS: Giant Platelets Few; Hypochromasia 1+; Lymphocytes 1 % (20-55); Ovalocytes Slight; Platelet Estimate Adequate; Segmented Neutrophils 87 % (50-85); Total Cells Counted 100
[2017-07-22 05:53] LABS: Prealbumin 45.8 MG/DL (20-40)
[2017-07-22] MEDS: methylPREDNISolone SOD SUC 40 MG/1 ML VIAL IV SCH ×3 (06:05→21:18)
[2017-07-22] MEDS: DORNASE ALFA 2.5 MG/2.5 ML VIAL RESP TX SCH ×2 (07:43→19:07)
[2017-07-22] MEDS: FUROSEMIDE 40 MG/4 ML VIAL IV SCH (08:17)
[2017-07-22] MEDS: LEVOFLOXACIN INJ 500 MG in PREMIX 1 EACH IV SCH (08:18)
[2017-07-22] MEDS: ZINC SULFATE 220 MG CAPSULE PO SCH (08:19)
[2017-07-22] MEDS: DOCUSATE SODIUM 100 MG CAPSULE PEG SCH ×2 (08:19→20:26)
[2017-07-22] MEDS: ASCORBIC ACID 500 MG TABLET PO SCH ×2 (08:19→20:25)
[2017-07-22] MEDS: amLODIPine 2.5 MG TABLET PO SCH (08:19)
[2017-07-22] MEDS: METOPROLOL TARTRATE 25 MG TABLET PO SCH ×2 (08:19→20:26)
[2017-07-22] MEDS: SODIUM HYPOCHLORITE 0.25% IRRIG 473 ML BOTTLE TOP SCH (08:19)
[2017-07-22] MEDS: MULTIVITAMIN LIQUID (CENTRUM) 60 ML BOTTLE PO SCH (08:20)
[2017-07-22] MEDS: ENOXAPARIN 30 MG/0.3 ML SYRINGE SUBCUT SCH (20:25)
[2017-07-22] MEDS: PANTOPRAZOLE 40 MG VIAL IV SCH (20:26)
[2017-07-23] MEDS: ALBUTEROL/IPRATROPIUM 3 ML NEB RESP TX SCH ×4 (00:16→20:39)
[2017-07-23] MEDS: PROPOFOL 1,000 MG/100 ML BOTTLE IV SCH ×2 (01:00→21:11)
[2017-07-23] MEDS: LINEZOLID INJ 600 MG in PREMIX 1 EACH IV SCH ×2 (01:28→13:25)
[2017-07-23 04:23] LABS: ABG Base Excess 6.1 MMOL/L (-2.5-2.5); ABG HCO3 29.1 MMOL/L (20-26); ABG Oxygen Saturation 98.9 % (95-100); ABG PH 7.525 (7.35-7.45); ABG PO2 177.1 MM HG (80-95); ABG TCO2 30.2 MMOL/L (23-27); Allen Test Positive; Pt O2 Delivery Device Ventilator
[2017-07-23 04:52] LABS: Hematocrit 36.1 VOL% (42.0-52.0); Hemoglobin 11.6 GM/DL (14.0-18.0); Immature Granulocytes % 1.1 %; Immature Granulocytes Absolute 0.22 #; Lymphocytes # 0.5 10*3/uL (1.4-4.0); Lymphocytes % 2.2 % (21.2-54.2); Mean Corpuscular HGB Conc 32.1 GM/DL (32-36); Mean Corpuscular Hemoglobin 26 PG (27-34); Mean Corpuscular Volume 82.2 FL (87-102); Mean Platelet Volume 10.6 FL (9.6-12.0); Monocytes # 1.3 10*3/uL (0.11-0.8); Monocytes % 6.4 % (1.7-12.7); Neutrophils # 18.5 10*3/uL (1.4-7.4); Neutrophils % 90.3 % (38.7-73.9); Platelet Count 178 T/CUMM (130-400); Red Blood Count 4.39 MC/CUMM (3.8-5.5); Red Cell Distribution Width 21.2 % (9.3-17.3); White Blood Count 20.5 T/CUMM (4-12)
[2017-07-23 05:08] LABS: Calcium 8.7 MG/DL (8.5-10.1); Potassium 4.1 MMOL/L (3.5-5.1)
[2017-07-23 05:19] LABS: Band Neutrophils 1 % (0-10); Giant Platelets Few; Hypochromasia 1+; Lymphocytes 3 % (20-55); Platelet Estimate Normal; Segmented Neutrophils 90 % (50-85); Total Cells Counted 100
[2017-07-23] MEDS: INSULIN REGULAR 100 UNIT/ML SUBCUT SCH ×3 (06:05→17:14)
[2017-07-23] MEDS: methylPREDNISolone SOD SUC 40 MG/1 ML VIAL IV SCH ×3 (06:05→21:10)
[2017-07-23] MEDS: DORNASE ALFA 2.5 MG/2.5 ML VIAL RESP TX SCH ×2 (07:19→20:39)
[2017-07-23] MEDS ORDERED: FUROSEMIDE 100 MG/10 ML VIAL ONE (08:32)
[2017-07-23] MEDS: LEVOFLOXACIN INJ 500 MG in PREMIX 1 EACH IV SCH (08:38)
[2017-07-23] MEDS: METOPROLOL TARTRATE 25 MG TABLET PO SCH ×2 (08:39→21:10)
[2017-07-23] MEDS: SODIUM HYPOCHLORITE 0.25% IRRIG 473 ML BOTTLE TOP SCH (08:39)
[2017-07-23] MEDS: DOCUSATE SODIUM 100 MG CAPSULE PEG SCH ×2 (08:39→21:11)
[2017-07-23] MEDS: ZINC SULFATE 220 MG CAPSULE PO SCH (08:39)
[2017-07-23] MEDS: amLODIPine 2.5 MG TABLET PO SCH (08:39)
[2017-07-23] MEDS: ASCORBIC ACID 500 MG TABLET PO SCH ×2 (08:39→21:11)
[2017-07-23] MEDS: FUROSEMIDE 40 MG/4 ML VIAL IV SCH (08:39)
[2017-07-23] MEDS: MULTIVITAMIN LIQUID (CENTRUM) 60 ML BOTTLE PO SCH (08:40)
[2017-07-23] MEDS: PANTOPRAZOLE 40 MG VIAL IV SCH (21:10)
[2017-07-23] MEDS: ENOXAPARIN 60 MG/0.6 ML SYRINGE SUBCUT SCH (21:11)
[2017-07-24] MEDS: LINEZOLID INJ 600 MG in PREMIX 1 EACH IV SCH (00:43)
[2017-07-24] MEDS: INSULIN REGULAR 100 UNIT/ML SUBCUT SCH ×5 (00:43→23:51)
[2017-07-24] MEDS: ALBUTEROL/IPRATROPIUM 3 ML NEB RESP TX SCH ×4 (01:06→19:10)
[2017-07-24 04:03] LABS: ABG Base Excess 6.3 MMOL/L (-2.5-2.5); ABG HCO3 27.9 MMOL/L (20-26); ABG Oxygen Saturation 98.9 % (95-100); ABG PCO2 30.5 MM HG (35-48); ABG PH 7.579 (7.35-7.45); ABG PO2 175.8 MM HG (80-95); ABG TCO2 28.8 MMOL/L (23-27)
[2017-07-24 04:59] LABS: Basophils % 0.1 % (0.0-0.8); Hematocrit 34.6 VOL% (42.0-52.0); Hemoglobin 11.7 GM/DL (14.0-18.0); Immature Granulocytes % 0.9 %; Immature Granulocytes Absolute 0.17 #; Lymphocytes # 0.5 10*3/uL (1.4-4.0); Lymphocytes % 2.3 % (21.2-54.2); Mean Corpuscular HGB Conc 33.8 GM/DL (32-36); Mean Corpuscular Hemoglobin 27 PG (27-34); Mean Platelet Volume 11.3 FL (9.6-12.0); Monocytes # 1.2 10*3/uL (0.11-0.8); Monocytes % 6.1 % (1.7-12.7); Neutrophils # 17.8 10*3/uL (1.4-7.4); Neutrophils % 90.6 % (38.7-73.9); Platelet Count 157 T/CUMM (130-400); Red Blood Count 4.38 MC/CUMM (3.8-5.5); Red Cell Distribution Width 21.3 % (9.3-17.3); White Blood Count 19.7 T/CUMM (4-12)
[2017-07-24 05:06] LABS: PT Patient Result 10.9 SECS; Partial Thromboplastin Time 35.4 SECS (0-40)
[2017-07-24 05:23] LABS: Hypochromasia 1+; Lymphocytes 4 % (20-55); Microcytosis 1+; Ovalocytes Slight; Segmented Neutrophils 89 % (50-85); Total Cells Counted 100
[2017-07-24 05:23] LABS: Calcium 8.2 MG/DL (8.5-10.1); Osmolality,Calculated 294.8 MOS/KG (273-304); Potassium 3.4 MMOL/L (3.5-5.1)
[2017-07-24] MEDS: methylPREDNISolone SOD SUC 40 MG/1 ML VIAL IV SCH ×3 (05:58→21:01)
[2017-07-24] MEDS: DORNASE ALFA 2.5 MG/2.5 ML VIAL RESP TX SCH ×2 (07:03→19:18)
[2017-07-24] MEDS: ENOXAPARIN 60 MG/0.6 ML SYRINGE SUBCUT SCH ×2 (08:17→20:51)
[2017-07-24] MEDS: LEVOFLOXACIN INJ 500 MG in PREMIX 1 EACH IV SCH (08:18)
[2017-07-24] MEDS: FUROSEMIDE 40 MG/4 ML VIAL IV SCH (08:18)
[2017-07-24] MEDS: SODIUM HYPOCHLORITE 0.25% IRRIG 473 ML BOTTLE TOP SCH (10:18)
[2017-07-24] MEDS: amLODIPine 2.5 MG TABLET PO SCH (10:18)
[2017-07-24] MEDS: DOCUSATE SODIUM 100 MG CAPSULE PEG SCH ×2 (10:18→20:50)
[2017-07-24] MEDS: MULTIVITAMIN LIQUID (CENTRUM) 60 ML BOTTLE PO SCH (10:18)
[2017-07-24] MEDS: METOPROLOL TARTRATE 25 MG TABLET PO SCH ×2 (10:18→20:51)
[2017-07-24] MEDS: ZINC SULFATE 220 MG CAPSULE PO SCH (10:18)
[2017-07-24] MEDS: ASCORBIC ACID 500 MG TABLET PO SCH ×2 (10:19→20:50)
[2017-07-24] MEDS ORDERED: POTASSIUM CHLORIDE INJ 30 MEQ in SODIUM CHLORIDE 0.9% 250 ML IV ONE (20:00)
[2017-07-24] MEDS: PANTOPRAZOLE 40 MG VIAL IV SCH (20:50)
[2017-07-24] MEDS: PROPOFOL 1,000 MG/100 ML BOTTLE IV SCH (23:46)
[2017-07-25] MEDS: ALBUTEROL/IPRATROPIUM 3 ML NEB RESP TX SCH ×4 (01:14→19:07)
[2017-07-25] MEDS: PROPOFOL 1,000 MG/100 ML BOTTLE IV SCH ×2 (03:01→22:29)
[2017-07-25 03:07] LABS: Basophils % 0.1 % (0.0-0.8); Hemoglobin 11.5 GM/DL (14.0-18.0); Immature Granulocytes % 0.9 %; Immature Granulocytes Absolute 0.16 #; Lymphocytes # 0.3 10*3/uL (1.4-4.0); Lymphocytes % 1.9 % (21.2-54.2); Mean Corpuscular HGB Conc 31.9 GM/DL (32-36); Mean Corpuscular Hemoglobin 26 PG (27-34); Mean Corpuscular Volume 82.2 FL (87-102); Mean Platelet Volume 12.5 FL (9.6-12.0); Monocytes # 1.1 10*3/uL (0.11-0.8); Monocytes % 6.1 % (1.7-12.7); Neutrophils # 15.8 10*3/uL (1.4-7.4); Platelet Count 118 T/CUMM (130-400); Red Blood Count 4.38 MC/CUMM (3.8-5.5); Red Cell Distribution Width 21.1 % (9.3-17.3); White Blood Count 17.4 T/CUMM (4-12)
[2017-07-25 03:30] LABS: Osmolality,Calculated 297.5 MOS/KG (273-304); Potassium 3.8 MMOL/L (3.5-5.1)
[2017-07-25 03:34] LABS: Prealbumin 39.4 MG/DL (20-40)
[2017-07-25 03:36] LABS: Lymphocytes 4 % (20-55); Segmented Neutrophils 92 % (50-85); Total Cells Counted 100
[2017-07-25 03:37] LABS: Platelet Estimate Adequate; Target Cells Slight
[2017-07-25 04:06] LABS: ABG HCO3 30.2 MMOL/L (20-26); ABG Oxygen Saturation 99.1 % (95-100); ABG PCO2 37.6 MM HG (35-48); ABG PH 7.522 (7.35-7.45); ABG PO2 189.8 MM HG (80-95); ABG TCO2 31.3 MMOL/L (23-27); Allen Test Positive; Pt O2 Delivery Device Ventilator
[2017-07-25] MEDS: INSULIN REGULAR 100 UNIT/ML SUBCUT SCH ×3 (05:19→17:19)
[2017-07-25] MEDS: POTASSIUM CHLORIDE RIDER 20 MEQ in PREMIX 1 EACH IV PRN (05:20)
[2017-07-25] MEDS: methylPREDNISolone SOD SUC 40 MG/1 ML VIAL IV SCH ×3 (05:20→21:45)
[2017-07-25] MEDS: DORNASE ALFA 2.5 MG/2.5 ML VIAL RESP TX SCH ×2 (06:56→19:08)
[2017-07-25] MEDS: FUROSEMIDE 40 MG/4 ML VIAL IV SCH (08:17)
[2017-07-25] MEDS: amLODIPine 2.5 MG TABLET PO SCH (08:18)
[2017-07-25] MEDS: ENOXAPARIN 60 MG/0.6 ML SYRINGE SUBCUT SCH ×2 (08:18→21:50)
[2017-07-25] MEDS: MULTIVITAMIN LIQUID (CENTRUM) 60 ML BOTTLE PO SCH (08:18)
[2017-07-25] MEDS: ASCORBIC ACID 500 MG TABLET PO SCH ×2 (08:18→21:45)
[2017-07-25] MEDS: SODIUM HYPOCHLORITE 0.25% IRRIG 473 ML BOTTLE TOP SCH (08:18)
[2017-07-25] MEDS: DOCUSATE SODIUM 100 MG CAPSULE PEG SCH ×2 (08:18→21:50)
[2017-07-25] MEDS: ZINC SULFATE 220 MG CAPSULE PO SCH (08:18)
[2017-07-25] MEDS: METOPROLOL TARTRATE 25 MG TABLET PO SCH ×2 (08:18→21:45)
[2017-07-25] MEDS: PANTOPRAZOLE 40 MG VIAL IV SCH (21:45)
[2017-07-26] MEDS: INSULIN REGULAR 100 UNIT/ML SUBCUT SCH ×4 (00:46→17:46)
[2017-07-26] MEDS: ALBUTEROL/IPRATROPIUM 3 ML NEB RESP TX SCH ×4 (00:47→17:52)
[2017-07-26 04:42] LABS: Allen Test Positive; Pt O2 Delivery Device Ventilator
[2017-07-26 04:43] LABS: ABG Base Excess 8.4 MMOL/L (-2.5-2.5); ABG HCO3 32.2 MMOL/L (20-26); ABG Oxygen Saturation 99.7 % (95-100); ABG PCO2 41.7 MM HG (35-48); ABG PH 7.499 (7.35-7.45); ABG TCO2 28.5 MMOL/L (23-27)
[2017-07-26] MEDS: methylPREDNISolone SOD SUC 40 MG/1 ML VIAL IV SCH ×3 (06:06→23:00)
[2017-07-26 07:23] LABS: Basophils % 0.1 % (0.0-0.8); Hematocrit 36.4 VOL% (42.0-52.0); Hemoglobin 11.8 GM/DL (14.0-18.0); Immature Granulocytes % 0.7 %; Immature Granulocytes Absolute 0.15 #; Lymphocytes # 0.5 10*3/uL (1.4-4.0); Lymphocytes % 2.3 % (21.2-54.2); Mean Corpuscular HGB Conc 32.4 GM/DL (32-36); Mean Corpuscular Hemoglobin 27 PG (27-34); Monocytes # 1.3 10*3/uL (0.11-0.8); Monocytes % 5.8 % (1.7-12.7); Neutrophils # 19.9 10*3/uL (1.4-7.4); Neutrophils % 91.1 % (38.7-73.9); Platelet Count 97 T/CUMM (130-400); Red Blood Count 4.44 MC/CUMM (3.8-5.5); Red Cell Distribution Width 21.2 % (9.3-17.3); White Blood Count 21.8 T/CUMM (4-12)
[2017-07-26 07:25] LABS: Mean Platelet Volume 11.9 FL (9.6-12.0)
[2017-07-26 07:30] LABS: PT Patient Result 10.7 SECS; Partial Thromboplastin Time 31.3 SECS (0-40)
[2017-07-26 07:42] LABS: Hypochromasia 1+; Lymphocytes 2 % (20-55); Microcytosis 1+; Ovalocytes Slight; Segmented Neutrophils 92 % (50-85); Total Cells Counted 100
[2017-07-26 07:43] LABS: Platelet Estimate Decreased
[2017-07-26] MEDS: DORNASE ALFA 2.5 MG/2.5 ML VIAL RESP TX SCH ×2 (08:10→17:58)
[2017-07-26] MEDS: MULTIVITAMIN LIQUID (CENTRUM) 60 ML BOTTLE PO SCH (10:17)
[2017-07-26] MEDS: SODIUM HYPOCHLORITE 0.25% IRRIG 473 ML BOTTLE TOP SCH (10:17)
[2017-07-26] MEDS: FUROSEMIDE 40 MG/4 ML VIAL IV SCH (10:17)
[2017-07-26] MEDS: DOCUSATE SODIUM 100 MG CAPSULE PEG SCH ×2 (10:17→20:33)
[2017-07-26] MEDS: ASCORBIC ACID 500 MG TABLET PO SCH ×2 (10:18→20:34)
[2017-07-26] MEDS: amLODIPine 2.5 MG TABLET PO SCH (10:18)
[2017-07-26] MEDS: ZINC SULFATE 220 MG CAPSULE PO SCH (10:18)
[2017-07-26] MEDS: ENOXAPARIN 60 MG/0.6 ML SYRINGE SUBCUT SCH ×2 (10:18→20:33)
[2017-07-26] MEDS: METOPROLOL TARTRATE 25 MG TABLET PO SCH ×2 (10:18→20:34)
[2017-07-26] MEDS: PROPOFOL 1,000 MG/100 ML BOTTLE IV SCH (20:26)
[2017-07-26] MEDS: PANTOPRAZOLE 40 MG VIAL IV SCH (20:30)
[2017-07-27] MEDS: INSULIN REGULAR 100 UNIT/ML SUBCUT SCH ×4 (00:31→18:43)
[2017-07-27] MEDS: ALBUTEROL/IPRATROPIUM 3 ML NEB RESP TX SCH ×4 (00:50→19:33)
[2017-07-27 06:03] LABS: ABG PCO2 42.3 MM HG (35-48); ABG PH 7.486 (7.35-7.45)
[2017-07-27 06:04] LABS: ABG Base Excess 7.7 MMOL/L (-2.5-2.5); ABG HCO3 31.5 MMOL/L (20-26)
[2017-07-27 06:28] LABS: Osmolality,Calculated 310.1 MOS/KG (273-304); Potassium 4.1 MMOL/L (3.5-5.1)
[2017-07-27] MEDS: methylPREDNISolone SOD SUC 40 MG/1 ML VIAL IV SCH ×3 (06:41→21:46)
[2017-07-27 06:50] LABS: Basophils % 0.1 % (0.0-0.8); Hematocrit 38.1 VOL% (42.0-52.0); Hemoglobin 12.1 GM/DL (14.0-18.0); Immature Granulocytes % 1.6 %; Immature Granulocytes Absolute 0.46 #; Lymphocytes # 1.1 10*3/uL (1.4-4.0); Lymphocytes % 3.7 % (21.2-54.2); Mean Corpuscular HGB Conc 31.8 GM/DL (32-36); Mean Corpuscular Hemoglobin 27 PG (27-34); Mean Corpuscular Volume 83.9 FL (87-102); Monocytes % 6.8 % (1.7-12.7); Neutrophils # 25.4 10*3/uL (1.4-7.4); Neutrophils % 87.8 % (38.7-73.9); Platelet Count 87 T/CUMM (130-400); Red Blood Count 4.54 MC/CUMM (3.8-5.5); Red Cell Distribution Width 21.9 % (9.3-17.3); White Blood Count 28.9 T/CUMM (4-12)
[2017-07-27 06:55] LABS: Partial Thromboplastin Time 29.2 SECS (0-40)
[2017-07-27 07:32] LABS: Hypochromasia 1+; Lymphocytes 4 % (20-55); Microcytosis Slight; Ovalocytes Slight; Platelet Estimate Decreased; Segmented Neutrophils 91 % (50-85); Total Cells Counted 100
[2017-07-27] MEDS: DORNASE ALFA 2.5 MG/2.5 ML VIAL RESP TX SCH ×2 (08:00→19:38)
[2017-07-27] MEDS ORDERED: SODIUM CHLORIDE 0.9% 1,000 ML IV PRN ×2 (08:25→18:38)
[2017-07-27] MEDS: METOPROLOL TARTRATE 25 MG TABLET PO SCH ×2 (09:33→21:41)
[2017-07-27] MEDS: amLODIPine 2.5 MG TABLET PO SCH (09:34)
[2017-07-27] MEDS: FUROSEMIDE 40 MG/4 ML VIAL IV SCH (09:35)
[2017-07-27] MEDS: ZINC SULFATE 220 MG CAPSULE PO SCH (10:38)
[2017-07-27] MEDS: ASCORBIC ACID 500 MG TABLET PO SCH ×2 (10:38→21:41)
[2017-07-27] MEDS: DOCUSATE SODIUM 100 MG CAPSULE PEG SCH ×2 (10:38→21:41)
[2017-07-27] MEDS: DEXTROSE 5% NACL 0.9% 1,000 ML IV SCH (10:45)
[2017-07-27] MEDS: SODIUM HYPOCHLORITE 0.25% IRRIG 473 ML BOTTLE TOP SCH (10:46)
[2017-07-27] MEDS: MULTIVITAMIN LIQUID (CENTRUM) 60 ML BOTTLE PO SCH (14:03)
[2017-07-27 14:43] LABS: Hematocrit 28.5 VOL% (42.0-52.0)
[2017-07-27 18:25] LABS: Basophils % 0.1 % (0.0-0.8); Hematocrit 26.4 VOL% (42.0-52.0); Hemoglobin 8.4 GM/DL (14.0-18.0); Immature Granulocytes % 0.9 %; Immature Granulocytes Absolute 0.25 #; Lymphocytes # 0.3 10*3/uL (1.4-4.0); Mean Corpuscular HGB Conc 31.8 GM/DL (32-36); Mean Corpuscular Hemoglobin 26 PG (27-34); Monocytes # 1.3 10*3/uL (0.11-0.8); Monocytes % 4.6 % (1.7-12.7); Neutrophils # 26.5 10*3/uL (1.4-7.4); Neutrophils % 93.4 % (38.7-73.9); Red Blood Count 3.18 MC/CUMM (3.8-5.5); Red Cell Distribution Width 21.3 % (9.3-17.3); White Blood Count 28.3 T/CUMM (4-12)
[2017-07-27 18:29] LABS: Platelet Count 69 T/CUMM (130-400)
[2017-07-27 21:14] LABS: Band Neutrophils 1 % (0-10); Lymphocytes 1 % (20-55); Platelet Estimate Decreased; Segmented Neutrophils 93 % (50-85); Total Cells Counted 100
[2017-07-27 21:15] LABS: Hypochromasia 2+
[2017-07-27] MEDS: PANTOPRAZOLE 40 MG VIAL IV SCH (21:41)
[2017-07-27] MEDS: PROPOFOL 1,000 MG/100 ML BOTTLE IV SCH (21:46)
[2017-07-28] MEDS: INSULIN REGULAR 100 UNIT/ML SUBCUT SCH ×4 (00:04→18:34)
[2017-07-28] MEDS: ALBUTEROL/IPRATROPIUM 3 ML NEB RESP TX SCH ×4 (00:20→18:20)
[2017-07-28 03:12] LABS: Allen Test Positive; Pt O2 Delivery Device Ventilator
[2017-07-28 03:13] LABS: ABG Base Excess 8.5 MMOL/L (-2.5-2.5); ABG HCO3 31.6 MMOL/L (20-26); ABG Oxygen Saturation 97.5 % (95-100); ABG PCO2 38.2 MM HG (35-48); ABG PH 7.536 (7.35-7.45); ABG PO2 108.5 MM HG (80-95); ABG TCO2 32.8 MMOL/L (23-27)
[2017-07-28 03:13] LABS: Basophils % 0.1 % (0.0-0.8); Hematocrit 30.7 VOL% (42.0-52.0); Immature Granulocytes Absolute 0.26 #; Lymphocytes # 0.4 10*3/uL (1.4-4.0); Lymphocytes % 1.5 % (21.2-54.2); Mean Corpuscular HGB Conc 32.9 GM/DL (32-36); Mean Corpuscular Hemoglobin 27 PG (27-34); Mean Corpuscular Volume 82.7 FL (87-102); Monocytes # 1.9 10*3/uL (0.11-0.8); Monocytes % 7.2 % (1.7-12.7); Neutrophils # 23.5 10*3/uL (1.4-7.4); Neutrophils % 90.2 % (38.7-73.9); Platelet Count 53 T/CUMM (130-400); Red Blood Count 3.71 MC/CUMM (3.8-5.5); Red Cell Distribution Width 19.5 % (9.3-17.3); White Blood Count 26.1 T/CUMM (4-12)
[2017-07-28 03:15] LABS: Hemoglobin 10.1 GM/DL (14.0-18.0)
[2017-07-28 03:32] LABS: Band Neutrophils 3 % (0-10); Lymphocytes 5 % (20-55); Segmented Neutrophils 89 % (50-85); Total Cells Counted 100
[2017-07-28 03:49] LABS: Calcium 8.1 MG/DL (8.5-10.1); Osmolality,Calculated 332.3 MOS/KG (273-304); Potassium 4.3 MMOL/L (3.5-5.1)
[2017-07-28] MEDS: methylPREDNISolone SOD SUC 40 MG/1 ML VIAL IV SCH ×3 (05:37→21:15)
[2017-07-28] MEDS: DEXTROSE 5% NACL 0.9% 1,000 ML IV SCH (05:38)
[2017-07-28] MEDS: DORNASE ALFA 2.5 MG/2.5 ML VIAL RESP TX SCH ×2 (07:40→18:26)
[2017-07-28] MEDS: ZINC SULFATE 220 MG CAPSULE PO SCH (08:56)
[2017-07-28] MEDS: DOCUSATE SODIUM 100 MG CAPSULE PEG SCH (08:56)
[2017-07-28] MEDS: ASCORBIC ACID 500 MG TABLET PO SCH ×2 (08:56→21:14)
[2017-07-28] MEDS: METOPROLOL TARTRATE 25 MG TABLET PO SCH ×2 (08:56→21:15)
[2017-07-28] MEDS: MULTIVITAMIN LIQUID (CENTRUM) 60 ML BOTTLE PO SCH (08:56)
[2017-07-28] MEDS: SODIUM HYPOCHLORITE 0.25% IRRIG 473 ML BOTTLE TOP SCH (08:57)
[2017-07-28 09:21] LABS: Basophils % 0.1 % (0.0-0.8); Hemoglobin 10.7 GM/DL (14.0-18.0); Immature Granulocytes Absolute 0.28 #; Lymphocytes # 0.7 10*3/uL (1.4-4.0); Lymphocytes % 2.4 % (21.2-54.2); Mean Corpuscular HGB Conc 32.4 GM/DL (32-36); Mean Corpuscular Hemoglobin 27 PG (27-34); Mean Corpuscular Volume 83.1 FL (87-102); Monocytes # 1.8 10*3/uL (0.11-0.8); Monocytes % 6.2 % (1.7-12.7); Neutrophils # 26.4 10*3/uL (1.4-7.4); Neutrophils % 90.3 % (38.7-73.9); Red Blood Count 3.97 MC/CUMM (3.8-5.5); Red Cell Distribution Width 19.6 % (9.3-17.3); White Blood Count 29.2 T/CUMM (4-12)
[2017-07-28 09:23] LABS: Platelet Count 58 T/CUMM (130-400)
[2017-07-28 09:46] LABS: Lymphocytes 6 % (20-55); Platelet Estimate Decreased; Segmented Neutrophils 88 % (50-85); Total Cells Counted 100
[2017-07-28 09:47] LABS: Hypochromasia 1+; Microcytosis Slight; Ovalocytes Slight
[2017-07-28] MEDS: DEXTROSE 5% NACL 0.45% 1,000 ML IV SCH (09:55)
[2017-07-28] MEDS: SUCRALFATE 1 GM/10 ML UDCUP PO SCH ×3 (13:54→21:14)
[2017-07-28 15:39] LABS: Basophils % 0.1 % (0.0-0.8); Hematocrit 32.6 VOL% (42.0-52.0); Hemoglobin 10.5 GM/DL (14.0-18.0); Immature Granulocytes % 0.9 %; Immature Granulocytes Absolute 0.27 #; Lymphocytes # 0.4 10*3/uL (1.4-4.0); Lymphocytes % 1.4 % (21.2-54.2); Mean Corpuscular HGB Conc 32.2 GM/DL (32-36); Mean Corpuscular Hemoglobin 27 PG (27-34); Mean Corpuscular Volume 83.4 FL (87-102); Monocytes % 3.3 % (1.7-12.7); Neutrophils # 27.3 10*3/uL (1.4-7.4); Neutrophils % 94.3 % (38.7-73.9); Red Blood Count 3.91 MC/CUMM (3.8-5.5); Red Cell Distribution Width 19.9 % (9.3-17.3); White Blood Count 28.9 T/CUMM (4-12)
[2017-07-28 15:42] LABS: Platelet Count 52 T/CUMM (130-400)
[2017-07-28 16:03] LABS: Lymphocytes 1 % (20-55); Segmented Neutrophils 96 % (50-85); Total Cells Counted 100
[2017-07-28 16:04] LABS: Hypochromasia Slight; Platelet Estimate Decreased
[2017-07-28] MEDS ORDERED: SUCRALFATE 1 GM TABLET PO SCH (18:00)
[2017-07-28] MEDS ORDERED: FAMOTIDINE INJ 40 MG in SODIUM CHLORIDE 0.9% 100 ML IV SCH (21:00)
[2017-07-28] MEDS ORDERED: SODIUM CHLORIDE 0.9% 500 ML IV ONE (21:03)
[2017-07-28] MEDS: DOCUSATE SODIUM 100 MG/10 ML UDCUP PEG SCH (21:14)
[2017-07-28] MEDS: PROPOFOL 1,000 MG/100 ML BOTTLE IV SCH (21:15)
[2017-07-28 22:36] LABS: Basophils % 0.1 % (0.0-0.8); Hematocrit 30.6 VOL% (42.0-52.0); Hemoglobin 9.8 GM/DL (14.0-18.0); Immature Granulocytes % 0.6 %; Immature Granulocytes Absolute 0.15 #; Lymphocytes # 0.2 10*3/uL (1.4-4.0); Lymphocytes % 0.9 % (21.2-54.2); Mean Corpuscular Hemoglobin 27 PG (27-34); Mean Corpuscular Volume 84.3 FL (87-102); Monocytes # 0.7 10*3/uL (0.11-0.8); Monocytes % 2.9 % (1.7-12.7); Neutrophils # 22.8 10*3/uL (1.4-7.4); Neutrophils % 95.5 % (38.7-73.9); Red Blood Count 3.63 MC/CUMM (3.8-5.5); White Blood Count 23.9 T/CUMM (4-12)
[2017-07-28 22:38] LABS: Platelet Count 48 T/CUMM (130-400)
[2017-07-29] MEDS: INSULIN REGULAR 100 UNIT/ML SUBCUT SCH ×5 (01:08→23:54)
[2017-07-29] MEDS: ALBUTEROL/IPRATROPIUM 3 ML NEB RESP TX SCH ×4 (01:11→19:00)
[2017-07-29] MEDS ORDERED: SODIUM CHLORIDE 0.9% 250 ML IV ONE (02:38)
[2017-07-29] MEDS: DEXTROSE 5% NACL 0.45% 1,000 ML IV SCH ×2 (02:40→17:15)
[2017-07-29 03:23] LABS: ABG Base Excess 4.9 MMOL/L (-2.5-2.5); ABG HCO3 26.9 MMOL/L (20-26); ABG Oxygen Saturation 95.2 % (95-100); ABG PCO2 30.8 MM HG (35-48); ABG PH 7.559 (7.35-7.45); ABG PO2 71.5 MM HG (80-95); ABG TCO2 27.8 MMOL/L (23-27); Allen Test Positive; Pt O2 Delivery Device Ventilator
[2017-07-29 03:43] LABS: Basophils % 0.1 % (0.0-0.8); Hematocrit 32.5 VOL% (42.0-52.0); Hemoglobin 10.3 GM/DL (14.0-18.0); Immature Granulocytes % 0.6 %; Immature Granulocytes Absolute 0.11 #; Lymphocytes # 0.2 10*3/uL (1.4-4.0); Lymphocytes % 0.8 % (21.2-54.2); Mean Corpuscular HGB Conc 31.7 GM/DL (32-36); Mean Corpuscular Hemoglobin 27 PG (27-34); Mean Corpuscular Volume 84.4 FL (87-102); Monocytes # 0.6 10*3/uL (0.11-0.8); Monocytes % 2.8 % (1.7-12.7); Neutrophils # 18.8 10*3/uL (1.4-7.4); Neutrophils % 95.7 % (38.7-73.9); Platelet Count 48 T/CUMM (130-400); Red Blood Count 3.85 MC/CUMM (3.8-5.5); Red Cell Distribution Width 20.2 % (9.3-17.3); White Blood Count 19.7 T/CUMM (4-12)
[2017-07-29 03:53] LABS: Band Neutrophils 3 % (0-10); Lymphocytes 1 % (20-55); Myelocytes 1 %; Segmented Neutrophils 94 % (50-85)
[2017-07-29] MEDS: ACETAMINOPHEN 325 MG TABLET PO PRN (03:53)
[2017-07-29 03:54] LABS: Hypochromasia 1+; Platelet Estimate Decreased
[2017-07-29 03:55] LABS: Total Cells Counted 100
[2017-07-29 03:59] LABS: Prealbumin 25.7 MG/DL (20-40)
[2017-07-29] MEDS: MORPHINE 2 MG/1 ML SYRINGE IV PRN ×2 (04:05→23:54)
[2017-07-29 04:12] LABS: Calcium 8.1 MG/DL (8.5-10.1); Osmolality,Calculated 325.1 MOS/KG (273-304); Potassium 4.2 MMOL/L (3.5-5.1)
[2017-07-29] MEDS ORDERED: AMIODARONE INJ 450 MG in DEXTROSE 5% 241 ML IV SCH (04:30)
[2017-07-29 05:11] LABS: HIV Antigen/Antibody Result Nonreactive (Nonreactive); Hepatitis B Surface Ag Quant < 0.10 Index; Hepatitis B Surface Ag Result Negative (Negative); Hepatitis C Virus Ab Quant > 11.00 Index; Hepatitis C Virus Ab Result Positive (Negative)
[2017-07-29 05:19] LABS: Band Neutrophils 5 % (0-10); Lymphocytes 3 % (20-55); Segmented Neutrophils 92 % (50-85); Total Cells Counted 100
[2017-07-29 05:20] LABS: Hypochromasia 1+; Platelet Estimate Decreased
[2017-07-29] MEDS: methylPREDNISolone SOD SUC 40 MG/1 ML VIAL IV SCH ×3 (06:01→22:50)
[2017-07-29] MEDS: DORNASE ALFA 2.5 MG/2.5 ML VIAL RESP TX SCH ×2 (08:20→19:06)
[2017-07-29] MEDS: DOCUSATE SODIUM 100 MG/10 ML UDCUP PEG SCH ×2 (08:50→20:30)
[2017-07-29] MEDS: SUCRALFATE 1 GM/10 ML UDCUP PO SCH ×4 (08:50→20:30)
[2017-07-29] MEDS: MULTIVITAMIN LIQUID (CENTRUM) 60 ML BOTTLE PO SCH (08:50)
[2017-07-29] MEDS: SODIUM HYPOCHLORITE 0.25% IRRIG 473 ML BOTTLE TOP SCH (08:50)
[2017-07-29] MEDS: ASCORBIC ACID 500 MG TABLET PO SCH ×2 (08:51→20:30)
[2017-07-29] MEDS: METOPROLOL TARTRATE 25 MG TABLET PO SCH (08:51)
[2017-07-29] MEDS: ZINC SULFATE 220 MG CAPSULE PO SCH (08:51)
[2017-07-29] MEDS ORDERED: METOPROLOL TARTRATE 5 MG/5 ML VIAL IV ONE ×2 (09:27→10:00)
[2017-07-29] MEDS: AMIODARONE INJ 450 MG in DEXTROSE 5% 241 ML IV SCH ×2 (10:38→12:53)
[2017-07-29] MEDS ORDERED: ALBUTEROL/IPRATROPIUM 3 ML NEB RESP TX PRN (11:18)
[2017-07-29 12:56] LABS: Troponin I Only 0.376 NG/ML (0.00-0.045)
[2017-07-29] MEDS: POTASSIUM PHOS/SOD PHOS POWDER 250 MG PACK PEG SCH ×2 (14:53→22:50)
[2017-07-29] MEDS: METOPROLOL TARTRATE 5 MG/5 ML VIAL IV SCH (17:53)
[2017-07-29] MEDS ORDERED: INSULIN GLARGINE 100 UNIT/ML SUBCUT SCH (21:00)
[2017-07-30] MEDS: DEXTROSE 5% NACL 0.45% 1,000 ML IV SCH ×3 (00:17→12:07)
[2017-07-30] MEDS: ALBUTEROL/IPRATROPIUM 3 ML NEB RESP TX SCH ×2 (00:39→07:20)
[2017-07-30] MEDS: METOPROLOL TARTRATE 5 MG/5 ML VIAL IV SCH ×2 (01:31→11:46)
[2017-07-30 04:28] LABS: Pt O2 Delivery Device Venturi Mask
[2017-07-30] MEDS: LABETALOL 20 MG/4 ML SYRINGE IV PRN (04:29)
[2017-07-30 04:31] LABS: ABG Base Excess 5.8 MMOL/L (-2.5-2.5); ABG HCO3 29.6 MMOL/L (20-26); ABG Oxygen Saturation 91.9 % (95-100); ABG PCO2 32.4 MM HG (35-48); ABG PH 7.548 (7.35-7.45); ABG PO2 55.7 MM HG (80-95); ABG TCO2 25.6 MMOL/L (23-27)
[2017-07-30 05:00] LABS: Basophils % 0.3 % (0.0-0.8); Hematocrit 29.3 VOL% (42.0-52.0); Hemoglobin 9.5 GM/DL (14.0-18.0); Immature Granulocytes % 2.1 %; Immature Granulocytes Absolute 0.07 #; Lymphocytes # 0.2 10*3/uL (1.4-4.0); Lymphocytes % 6.8 % (21.2-54.2); Mean Corpuscular HGB Conc 32.4 GM/DL (32-36); Mean Corpuscular Hemoglobin 27 PG (27-34); Monocytes # 0.1 10*3/uL (0.11-0.8); Monocytes % 3.9 % (1.7-12.7); NRBC # 0.02 10*3/uL; Neutrophils # 2.9 10*3/uL (1.4-7.4); Neutrophils % 86.9 % (38.7-73.9); Platelet Count 53 T/CUMM (130-400); Red Blood Count 3.53 MC/CUMM (3.8-5.5); Red Cell Distribution Width 20.8 % (9.3-17.3); White Blood Count 3.4 T/CUMM (4-12)
[2017-07-30] MEDS ORDERED: SODIUM CHLORIDE 0.9% 500 ML IV ONE ×2 (05:05→06:55)
[2017-07-30 05:10] LABS: INR 1.1; Partial Thromboplastin Time 39.5 SECS (0-40)
[2017-07-30 05:26] LABS: Band Neutrophils 4 % (0-10); Hypochromasia 1+; Lymphocytes 11 % (20-55); Metamyelocytes 4 %; Microcytosis 1+; Myelocytes 1 %; Nucleated Red Blood Cells 2 (0-5); Segmented Neutrophils 73 % (50-85); Total Cells Counted 100
[2017-07-30 05:27] LABS: Platelet Estimate Decreased
[2017-07-30 05:28] LABS: Calcium 8.4 MG/DL (8.5-10.1); Osmolality,Calculated 306.7 MOS/KG (273-304); Potassium 5.1 MMOL/L (3.5-5.1)
[2017-07-30 05:45] LABS: Albumin 1.6 G/DL (3.4-5.0); Bilirubin,Direct 0.53 MG/DL (0.0-0.20); Bilirubin,Indirect 0.7 MG/DL (0.0-1.0); Bilirubin,Total 1.2 MG/DL (0.2-1.0); Total Protein 4.6 G/DL (6.4-8.3)
[2017-07-30 05:59] LABS: Troponin I Only 0.308 NG/ML (0.00-0.045)
[2017-07-30] MEDS: DEXTROSE 50% 25 GM/50 ML VIAL IV PRN ×2 (06:00→11:00)
[2017-07-30] MEDS: INSULIN REGULAR 100 UNIT/ML SUBCUT SCH ×2 (06:05→12:08)
[2017-07-30] MEDS: methylPREDNISolone SOD SUC 40 MG/1 ML VIAL IV SCH (06:06)
[2017-07-30] MEDS ORDERED: SODIUM CHLORIDE 0.9% 1,000 ML IV SCH (07:00)
[2017-07-30] MEDS: DORNASE ALFA 2.5 MG/2.5 ML VIAL RESP TX SCH (07:27)
[2017-07-30] MEDS: SUCRALFATE 1 GM/10 ML UDCUP PO SCH ×2 (09:31→11:55)
[2017-07-30] MEDS: DOCUSATE SODIUM 100 MG/10 ML UDCUP PEG SCH (09:31)
[2017-07-30] MEDS: MULTIVITAMIN LIQUID (CENTRUM) 60 ML BOTTLE PO SCH (09:32)
[2017-07-30] MEDS: ASCORBIC ACID 500 MG TABLET PO SCH (09:32)
[2017-07-30] MEDS: SODIUM HYPOCHLORITE 0.25% IRRIG 473 ML BOTTLE TOP SCH (09:32)
[2017-07-30] MEDS: POTASSIUM PHOS/SOD PHOS POWDER 250 MG PACK PEG SCH (09:32)
[2017-07-30] MEDS ORDERED: MEROPENEM 500 MG in SYRINGE 1 EACH IV SCH (11:00)
[2017-07-30 12:50] VITALS: BP 56/27
[2017-07-31 18:26] LABS: HIT Interpretation Negative (Negative)
== END 2017-07-30 12:23 | disposition expired | DRG 166 ==
LOC: EDBD → EDUNIT# → N.ED 18:45 → N.EDINP 23:41 → SUATTDRO 23:41 → N.CC 06-26 02:38 → N.5E 07-12 13:37 → N.CC 07-14 20:36
PROVIDERS: ADMIT Internal Medicine; ATTEND Internal Medicine